=== PATIENT | female | born 1940 | race Caucasian/White ===

== ENCOUNTER 2021-06-04 08:21 | Outpatient (REF) | payer MEDICARE, SELFPAY ==
--- NOTE | ~2021-06-04 | MM_ITS ---
EXAMINATION: MM SCREENING DIGITAL BREAST TOMOSYNTHESIS, BILATERAL CLINICAL INFORMATION: Screening. Asymptomatic. Right benign stereotactic biopsy 10/19/2028 (fibroadenomatous change and calcifications). The lifetime risk of breast cancer based on the Tyrer-Cuzick Model is 2%. COMPARISON: Mammography: 02/24/2020, 10/19/2018, 10/12/2018, 10/01/2018, 09/06/2017 TECHNIQUE: Digital breast tomosynthesis is performed in both the craniocaudal and mediolateral oblique views along with computer-aided detection (CAD). Synthesized 2D images are generated from the tomosynthesis. FINDINGS: There are scattered areas of fibroglandular density (ACR BI-RADS breast composition Category b). There are no significant masses, abnormal calcifications, or other abnormalities. There is biopsy clip marker right breast mid 6:00 position. The axilla and skin contours are unremarkable. MM/MM tomosynthesis screening BI IMPRESSION: No mammographic evidence of malignancy. ASSESSMENT: BI-RADS 1: Negative RECOMMENDATION: Routine annual mammography screening. This patient's information was entered into a reminder system with a target due date for their next mammogram.
== END 2021-06-04 08:22 | disposition home or self-care (01) ==
LOC: HO.MAMMO 08:21
PROVIDERS: Visit Provider Family Medicine
DX: Z12.31 Encounter for screening mammogram for malignant neoplasm of breast (principal)
CPT/HCPCS: 77063; 77067

== ENCOUNTER 2022-06-14 07:19 | Outpatient (REF) | payer MEDICARE, OTHER, SELFPAY ==
--- NOTE | ~2022-06-14 | MM_ITS ---
EXAMINATION: MM SCREENING DIGITAL BREAST TOMOSYNTHESIS, BILATERAL CLINICAL INFORMATION: Screening. Asymptomatic. COMPARISON: Mammography: 06/04/2021, 02/24/2020, 10/19/2018, 10/12/2018, 10/01/2018 TECHNIQUE: Digital breast tomosynthesis is performed in both the craniocaudal and mediolateral oblique views along with computer-aided detection (CAD). Synthesized 2D images are generated from the tomosynthesis. FINDINGS: There are scattered areas of fibroglandular density (ACR BI-RADS breast composition Category b). There are no significant masses, abnormal calcifications, or other abnormalities. Parenchymal pattern is similar to prior studies. There are biopsy clip marker is posterior upper outer left breast and mid 6:30 right breast. Small intramammary nodes again seen mid outer right breast. No significant changes. MM/MM tomosynthesis screening BI IMPRESSION: No mammographic evidence of malignancy. ASSESSMENT: BI-RADS 2: Benign RECOMMENDATION: Routine annual mammography screening. This patient's information was entered into a reminder system with a target due date for their next mammogram.
== END 2022-06-14 07:20 | disposition home or self-care (01) ==
LOC: HO.MAMMO 07:19
PROVIDERS: PCP Family Medicine; Visit Provider Family Medicine
DX: Z12.31 Encounter for screening mammogram for malignant neoplasm of breast (principal)
CPT/HCPCS: 77063; 77067

== ENCOUNTER 2023-06-20 14:06 | Outpatient (REF) | payer MEDICARE, OTHER, SELFPAY ==
--- NOTE | ~2023-06-20 | MM_ITS ---
EXAMINATION: MM SCREENING DIGITAL BREAST TOMOSYNTHESIS, BILATERAL CLINICAL INFORMATION: Screening. Asymptomatic. COMPARISON: Mammography: This study is compared with prior exams dating back to 2019. TECHNIQUE: Digital breast tomosynthesis is performed in both the craniocaudal and mediolateral oblique views along with computer-aided detection (CAD). Synthesized 2D images are generated from the tomosynthesis. FINDINGS: There are scattered areas of fibroglandular density (ACR BI-RADS breast composition Category b). There are no significant masses, abnormal calcifications, or other abnormalities. There is a tissue marker present in the right breast from prior benign percutaneous biopsy. Serial MM/MM tomosynthesis screening BI IMPRESSION: No mammographic evidence of malignancy. ASSESSMENT: BI-RADS BI-RADS 2 - Benign Findings RECOMMENDATION: Routine annual mammography screening. 1 year F/U This examination should not preclude the clinical evaluation of a suspicious palpable abnormality. This patient's information was entered into a reminder system with a target due date for their next mammogram.
== END 2023-06-20 14:07 | disposition home or self-care (01) ==
LOC: HO.MAMMO 14:06
PROVIDERS: PCP Family Medicine; Visit Provider Family Medicine
DX: Z12.31 Encounter for screening mammogram for malignant neoplasm of breast (principal)
CPT/HCPCS: 77063; 77067

== ENCOUNTER → 2023-06-20 14:15 | Outpatient (BNV) | payer MEDICARE, OTHER, SELFPAY | PROVIDERS: PCP Family Medicine; Visit Provider Radiology Diagnostic Radiology | DX: Z12.31 Encounter for screening mammogram for malignant neoplasm of breast (principal) | CPT/HCPCS: 77063; 77067 ==

== ENCOUNTER 2023-06-28 19:13 | Emergency (ER) | payer MEDICARE, OTHER, SELFPAY ==
[2023-06-28] VITALS (8 sets, daily range): BP systolic 120–153; BP diastolic 63–80; PULSE 79–98; RESP 14–17; TEMP 36.4–37.6; O2SAT 97–99; BMI 38.3
--- NOTE | ~2023-06-28 | CT_ITS ---
EXAMINATION: CT CERVICAL SPINE WITHOUT CONTRAST CLINICAL INFORMATION: Pain. Fall. COMPARISON: None available. TECHNIQUE: Axial images through the cervical spine without contrast. Sagittal and coronal reconstructions on the technologist workstation This CT examination was performed using dose optimization techniques as appropriate, variously including the following: *Automated exposure control *Adjustment of mA and/or kV according to patient size (this includes techniques or standardized protocols for targeted exams where dose is matched to indication/reason for exam; i.e. extremities or head) *Use of iterative reconstruction technique DLP: 459 mGy-cm FINDINGS: Bone alignment is normal. No fracture or dislocation. Mild degenerative spondylosis and degenerative disc disease from C4-C5 to C6-C7. Mild degenerative changes of the C1 dens articulation. Mild facet arthritis, left greater than right. Prevertebral soft tissues are normal. Small 1.3 cm left thyroid nodule. No imaging follow-up recommended. Right carotid calcification. Visualized lung apices are clear. CT/CT cervical spine wo IV con IMPRESSION: Degenerative changes. No fracture or dislocation. Fleischner guidelines were followed.
--- NOTE | ~2023-06-28 | CT_ITS ---
EXAMINATION: CT HEAD WITHOUT CONTRAST CLINICAL INFORMATION: Fall COMPARISON: None available. TECHNIQUE: Contiguous axial imaging was performed from the skull base to vertex without intravenous administration of contrast. This CT examination was performed using dose optimization techniques as appropriate, variously including the following: *Automated exposure control *Adjustment of mA and/or kV according to patient size (this includes techniques or standardized protocols for targeted exams where dose is matched to indication/reason for exam; i.e. extremities or head) *Use of iterative reconstruction technique DLP: 742 mGy-cm FINDINGS: There is no evidence of an extra-axial collection. There is no evidence of intra-axial or extra-axial hemorrhage. The ventricles and extra-axial CSF spaces are prominent suggestive of mild generalized atrophy. There is nonspecific periventricular white matter disease. No mass, mass effect or infarct. Review of bone windows is normal. No skull fracture. Visualized paranasal sinuses, mastoid air cells and middle ears are clear. CT/CT head/brain wo IV con IMPRESSION: No acute intracranial pathology.
--- NOTE | 2023-06-28 19:32 | ED.FALL ---
HPI - Fall General Chief Complaint: Fall Stated Complaint: TRIP/FALL OVER CHAIR,+LOC,-THIN,+CCOLLAR Time Seen by Provider: 06/28/23 19:31 Source: patient and family Mode of arrival: EMS Limitations: no limitations History of Present Illness HPI Narrative: Patient history of hypertension and was healthy at good time with friends sitting had 1 glass of wine at dinner patient does not remember after that , according to her friends patient stood up and tripped over her chair and fell backward hitting her head to the ground no seizure activity no loss of consciousness patient was dazed patient denies any chest pain or palpitation remember waking up from the ground with her friend surrounding her. Patient never had similar episode in the past Related Data Allergies Allergy/AdvReac Type Severity Reaction Status Date / Time losartan [LOSARTAN] Allergy Severe TONGUE/THROAT Unverified 04/09/20 16:50 SWELLING, anaphylaxis KERRY Inhibitors Allergy Unknown COUGHING Unverified 04/09/20 16:50 [KERRY INHIBITORS] ARBs Allergy Unknown Unverified 10/24/18 00:00 lisinopril Allergy Unknown cough Verified 10/24/18 00:00 MARTA Allergy Severe TONGUE/THROAT Uncoded 04/09/20 16:50 SWELLING KERRY Inhibitors Allergy Unknown cough Uncoded 10/24/18 00:00 KERRY inhibitors Allergy Unknown Uncoded 07/26/18 00:00 Losartan Potassium-HCTZ Allergy Unknown anaphylaxis Uncoded 10/24/18 00:00 Review of Systems Review of Systems: Yes all other systems are reviewed and are negative [facility] Social History Social History Alcohol intake: current Alcohol intake frequency: holidays/special occasions only Alcohol type: wine Smoked in Last 30 Days: No Use of substances other than those prescribed or required for medical reasons: No Advance Directives: Yes Advance Directives Information Provided: No Advance Directives on File: No Physical Exam Vital Signs: Vital Signs: Last Vital Signs Temp 99.6 F 06/28/23 23:19 Pulse 98 06/28/23 23:19 Resp 17 06/28/23 23:19 BP 145/80 H 06/28/23 23:19 Pulse Ox 97 06/28/23 23:19 O2 Del Method Room Air 06/28/23 23:19 BMI result Body Mass Index 38.3 Appearance: Alert. Oriented X3. No acute distress. Eyes: PERRLA, No Nystagmus ENT: Pharynx normal. Oral Mucosa moist Neck: Normal inspection. Neck supple. No midline tenderness CVS: Normal heart rate and rhythm. Pulses normal. Respiratory: No respiratory distress. Equal air entry bilateral, no wheezing/rales/rhonchi Abdomen: Soft and nontender. Bowel sounds are present, no mass palpable, no CVA tenderness Skin: Skin warm and dry. Normal skin color. Normal skin turgor. Extremities: No lower extremity edema. No calf tenderness Neuro: Oriented X 3. No motor deficit. No sensory deficit.No cerebellar signs , cranial nerves II-XII intact Medical Decision Making Medical Decision Making [facility] Narrative: Patient's syncope episode etiology not very clear likely orthostatic hypotension/vasovagal workup is negative otherwise discharge patient home advised to follow with PCP Differential Diagnosis Differential Diagnoses: The differential diagnosis associated with the presentation includes Syncope/vasovagal/cardiac /cva Admission/Observation Consideration of admission/observation: Escalation of care including admission/observation considered Lab Data [facility] Lab Attestation statement: I reviewed the patient's lab results. 06/28/23 20:05 06/28/23 20:05 Labs: Lab Results 06/28/23 06/28/23 Range/Units 20:05 22:25 WBC 7.4 (4.8-10.8) X10*3/uL RBC 5.17 (4.20-5.50) X10*6/uL Hgb 13.7 (12.0-16.0) g/dl Hct 43.4 (37.0-47.0) % MCV 83.9 (80.0-98.0) fL MCH 26.5 L (27.0-33.0) pg MCHC 31.6 (31.0-35.0) g/dl RDW 13.9 (11.0-16.0) % Plt Count 262 (160-400) X10*3/uL MPV 10.1 (9.4-12.3) fL Immature Gran % (Auto) 0.3 (0.0-0.4) % Neut % (Auto) 52.4 (45-73) % Lymph % (Auto) 36.2 (20-40) % [place] % (Auto) 9.3 (2-11) % Eos % (Auto) 1.1 (0-4) % Baso % (Auto) 0.7 (0-2) % Lymph # (Auto) 2.7 (1.2-4.9) X10*3/uL [place] # (Auto) 0.7 (0.1-1.2) X10*3/uL Eos # (Auto) 0.1 (0.0-0.4) X10*3/uL Baso # (Auto) 0.1 (0.0-0.2) X10*3/uL Abs Immat Gran (auto) 0.02 (0.00-0.03) X10*3/uL Absolute Neuts (auto) 3.9 (2.0-8.3) x10*3/uL Absolute Nucleated RBC 0.000 (0.0-0.012) X10*3/uL Nucleated RBC % (auto) 0.0 (0.0-0.2) /100WBC PT 10.3 L (11.1-13.3) SEC INR 0.8 L (0.9-1.1) Sodium 140 (135-145) mmol/L Potassium 3.2 L (3.3-5.1) mmol/L Chloride 106 (96-108) mmol/L Carbon Dioxide 22 (22-29) mmol/L Anion Gap 15 (12-20) BUN 16 (9-16) mg/dL Creatinine 0.85 (0.5-1.4) mg/dL Estim Creat Clear Calc 53.6 Estimated GFR > 60 Random Glucose 125 H (60-115) mg/dL Calcium 9.6 (8.4-10.2) mg/dL Total Bilirubin 0.3 (0.0-1.0) mg/dL AST 22 (5-31) U/L ALT 15 (0-31) U/L Alkaline Phosphatase 129 H (39-117) U/L Troponin I High Sens < 2.7 (<3.5-17.0) ng/L Total Protein 6.8 (6.5-8.0) g/dL Albumin 3.7 (3.5-5.0) g/dL Urine Color Yellow Urine Appearance Clear Urine pH 5.5 (5.0-9.0) Ur Specific Joanna 1.010 (1.005-1.025) Urine Protein Negative (Neg-Trace) mg/dL Urine Glucose (UA) Negative (Negative) mg/dL Urine Ketones Negative (Negative) mg/dL Urine Blood Negative (Negative) Urine Nitrite Negative (Negative) Ur Leukocyte Esterase Trace H (Negative) Urine RBC 0-2 (0-2) /HPF Urine WBC 0-5 (0-5) /HPF Ur Squamous Epith Cells 0-2 (0-2) /HPF Urine Bacteria None Seen (None Seen) Hyaline Casts 0-2 (0-2) /LPF Independent Interpretation I performed an independent interpretation of an: EKG and CT Scan Interpretation: Normal sinus rhythm heart rate 91 beats per minute normal intervals normal axis no acute ST T wave changes no acute ischemic Radiology Impression Discussion of test interpretation with radiology: I have reviewed the radiologist's reading. Discharge Plan Discharge Clinical Impression: Fall, Vasovagal syncope Patient Disposition: Home, Self-Care Instructions: Fall Prevention for Older Adults (ED), Syncope in Older Adults (ED) Additional Instructions: Drink plenty of fluids Follow-up with PCP for further evaluation Report to the ER if recurrence of passing out episode Interventions: ED Discharge Assessment Last Done: 06/28/23 23:22 Discharge Date/Time: 06/28/23 23:24
--- NOTE | 2023-06-28 19:40 | ECG_ITS ---
Test Reason : SYNCOPE Blood Pressure : / mmHG Vent. Rate : 091 BPM Atrial Rate : 091 BPM P-R Int : 170 ms QRS Dur : 084 ms QT Int : 366 ms P-R-T Axes : 008 002 030 degrees QTc Int : 450 ms Normal sinus rhythm Normal ECG When compared with ECG of 05-NOV-2011 08:52, No significant change was found Referred By: Adam Shen Electronically Signed By:EUNICE FORTUNE
[2023-06-28 20:10] LABS: MANUAL DIFF FLAG NO
[2023-06-28 20:11] LABS: Basophils Absolute Auto 0.1 X10*3/uL (0.0-0.2); Basophils Percent Auto 0.7 % (0-2); Eosinophils Absolute Auto 0.1 X10*3/uL (0.0-0.4); Eosinophils Percent Auto 1.1 % (0-4); Hematocrit 43.4 % (37.0-47.0); Hemoglobin 13.7 g/dl (12.0-16.0); Imm Gran Abs Auto 0.02 X10*3/uL (0.00-0.03); Imm Gran Pct Auto 0.3 % (0.0-0.4); Lymphocytes Absolute Auto 2.7 X10*3/uL (1.2-4.9); Lymphocytes Percent Auto 36.2 % (20-40); Mean Corpuscular HGB Conc 31.6 g/dl (31.0-35.0); Mean Corpuscular Hemoglobin 26.5 pg (27.0-33.0); Mean Corpuscular Volume 83.9 fL (80.0-98.0); Mean Platelet Volume 10.1 fL (9.4-12.3); Monocytes Absolute Auto 0.7 X10*3/uL (0.1-1.2); Monocytes Percent Auto 9.3 % (2-11); Neutrophils Absolute Auto 3.9 x10*3/uL (2.0-8.3); Neutrophils Percent Auto 52.4 % (45-73); Platelet Count 262 X10*3/uL (160-400); Red Blood Count 5.17 X10*6/uL (4.20-5.50); Red Cell Distribution Width 13.9 % (11.0-16.0); White Blood Count 7.4 X10*3/uL (4.8-10.8)
[2023-06-28 20:19] LABS: INTERNATIONAL NORM RATIO 0.8 (0.9-1.1); Prothrombin Time 10.3 SEC (11.1-13.3)
[2023-06-28 20:29] LABS: Alanine Aminotransferase 15 U/L (0-31); Albumin Level 3.7 g/dL (3.5-5.0); Alkaline Phosphatase 129 U/L (39-117); Anion Gap 15 (12-20); Aspartate Amino Transferase 22 U/L (5-31); Bilirubin Total 0.3 mg/dL (0.0-1.0); Blood Urea Nitrogen 16 mg/dL (9-16); Calcium 9.6 mg/dL (8.4-10.2); Carbon Dioxide 22 mmol/L (22-29); Chloride 106 mmol/L (96-108); Creatinine Clr Calc Pharmacy 53.6; Estimated Glomerular Filt Rate > 60; Glucose Random 125 mg/dL (60-115); Potassium 3.2 mmol/L (3.3-5.1); Sodium 140 mmol/L (135-145); Total Protein 6.8 g/dL (6.5-8.0)
--- NOTE | 2023-06-28 20:32 | PC.NURSE ---
Patient presents after a fall which she tripped over a chair and fell backwards. Patient does not remember the fall at all but does remember that she was at dinner and then that she was on the ground and people telling her that everything was going to be alright. Patient does ask repetitive questions but is easily reoriented. No s/s of distress noted at this time, patient is in C-collar post fall.
[2023-06-28 20:35] LABS: Troponin-I High Sensitivity < 2.7 ng/L (<3.5-17.0)
--- NOTE | 2023-06-28 22:02 | PC.NURSE ---
Proxy at bedside at this time. Patient remain alert and oriented but still has not memory of falling. Patient is calm and cooperative at this time, no s/s of distress noted.
[2023-06-28 22:37] LABS: Appearance Urine Clear; Color Urine Yellow; Glucose Urine UA Negative (Negative); Leukocyte Esterase Urine Trace (Negative); Nitrite Urine Negative (Negative); PH 5.5 (5.0-9.0); UMIC TRIGGER UACC YES; Urine Blood Negative (Negative); Urine Ketones Negative (Negative); Urine Protein Negative (Neg-Trace)
[2023-06-28 22:39] LABS: Bacteria Urine None Seen (None Seen); Hyaline Casts Urine 0-2 /LPF (0-2); RBC Urine 0-2 /HPF (0-2); Squamous Epithelial Cell Urine 0-2 /HPF (0-2); WBC Urine 0-5 /HPF (0-5)
--- NOTE | 2023-06-28 22:50 | PC.NURSE ---
Patient sitting on the edge of her stretcher saying that she is ready to go, discharge order not in yet. Patient informed that discharge orders were not in and that when the paperwork was ready this nurse would be in to discharge her.
== END 2023-06-28 23:24 | disposition home or self-care (01) ==
PROVIDERS: Emergency Provider Internal Medicine; PCP Family Medicine
DX: R55 Syncope and collapse (principal); Z91.81 History of falling
CPT/HCPCS: 36415; 70450; 72125; 80053; 81001; 84484; 85025; 85610; 93005; 99284; 99285

== ENCOUNTER → 2023-06-28 19:40 | Outpatient (BNV) | payer MEDICARE, OTHER, SELFPAY | PROVIDERS: Emergency Provider Internal Medicine; PCP Family Medicine; Visit Provider Internal Medicine | DX: R55 Syncope and collapse (principal) | CPT/HCPCS: 93010 ==

== ENCOUNTER 2024-01-11 16:47 | Emergency (ER) | payer MEDICARE, OTHER, SELFPAY ==
--- NOTE | ~2024-01-11 | XR_ITS ---
EXAMINATION: XR CHEST CLINICAL INFORMATION: Chest pain. COMPARISON: Chest radiograph 07/29/2008. TECHNIQUE: Frontal view of the chest was obtained. FINDINGS: Normal appearance of the cardiomediastinal silhouette. No focal consolidation, pleural effusion or pneumothorax. No acute osseous findings. Visualized upper abdomen is within normal limits. XR/XR chest 1V IMPRESSION: No acute cardiopulmonary findings.
--- NOTE | 2024-01-11 16:48 | ECG_ITS ---
Test Reason : CHEST TIGHTNESS Blood Pressure : / mmHG Vent. Rate : 095 BPM Atrial Rate : 095 BPM P-R Int : 170 ms QRS Dur : 082 ms QT Int : 328 ms P-R-T Axes : -07 -14 020 degrees QTc Int : 412 ms Normal sinus rhythm Normal ECG When compared with ECG of 28-JUN-2023 20:14, No significant change was found Referred By: Sandra Etienne Electronically Signed By:Luc Ribeiro
--- NOTE | 2024-01-11 17:10 | ED_ITS ---
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 Holter monitoring 2 times but never captured the palpitation today patient comes for similar episode of palpitation lasted a little longer by the time patient arrived to the ER back to normal also had some chest tightness with palpitation no shortness breath no dizziness no passing out episode Related Data Previous Rx's ?Medication ?Instructions ?Recorded aspirin 81 mg tablet,delayed 81 mg PO DAILY #30 tabs 01/11/24 release Allergies Allergy/AdvReac Type Severity Reaction Status Date / Time losartan [LOSARTAN] Allergy Severe TONGUE/THROAT Verified 01/11/24 17:14 SWELLING, anaphylaxis KERRY Inhibitors Allergy Unknown COUGHING Verified 01/11/24 17:14 [KERRY INHIBITORS] ARBs Allergy Unknown Unknown Verified 01/11/24 17:14 lisinopril Allergy Unknown cough Verified 01/11/24 17:14 MARTA Allergy Severe TONGUE/THROAT Uncoded 04/09/20 16:50 SWELLING KERRY Inhibitors Allergy Unknown cough Uncoded 10/24/18 00:00 KERRY inhibitors Allergy Unknown Unknown Uncoded 01/11/24 17:14 Losartan Potassium-HCTZ Allergy Unknown anaphylaxis Uncoded 10/24/18 00:00 Review of Systems 2 Review of Systems: Yes all other systems are reviewed and are negative PMFSH Social History Social History Alcohol intake: current Alcohol intake frequency: holidays/special occasions only Alcohol type: wine Smoked in Last 30 Days: No Use of substances other than those prescribed or required for medical reasons: No Advance Directives: No Advance Directives Information Provided: No Do you have a plan to hurt others: No Plan Physical Exam 2 Vital Signs: Vital Signs: Last Vital Signs Temp 97.6 F 01/11/24 19:43 Pulse 74 01/11/24 19:43 Resp 16 01/11/24 19:43 BP 144/7 H 01/11/24 19:43 Pulse Ox 97 01/11/24 19:43 O2 Del Method Room Air 01/11/24 19:43 BMI result Body Mass Index 35.9 Appearance: Alert. Oriented X3. No acute distress. Eyes: PERRLA, No Nystagmus ENT: Pharynx normal. Oral Mucosa moist Neck: Normal inspection. Neck supple. CVS: Normal heart rate and rhythm. Pulses normal. Respiratory: No respiratory distress. Equal air entry bilateral, no wheezing/rales/rhonchi Abdomen: Soft and nontender. Bowel sounds are present, no mass palpable, no CVA tenderness Skin: Skin warm and dry. Normal skin color. Normal skin turgor. Extremities: No lower extremity edema. No calf tenderness Neuro: Oriented X 3. No motor deficit. No sensory deficit.No cerebellar signs , cranial nerves II-XII intact Course Course Course Narrative: This is a Rapid Medical Exam performed in triage by Sandra Etienne PA-C. Full HPI, ROS and PE to be performed by primary ED provider. 83 year-old w/ PMHx HTN presenting to the ED c/o palpitations since this AM w/ chest tightness & HTN noted at home starting around 9AM while reading. Reports sx are improved at present but sx have been happening lately Told to come to ED by PCP. denies new SOB (chronic SOB), nausea. denies taking AC PE: Nontoxic appearing, ambulating w/steady gait, BP 161/86 Plan: EKG, labs, CXR ordered Medications Administered Discontinued Medications Generic Name Dose Route Start Last Admin Trade Name Freq PRN Reason Stop Dose Admin Aspirin 81 mg 01/11/24 19:26 01/11/24 19:29 Aspirin Enteric Coated 81 Mg Tablet.Dr EARLY 01/11/24 19:27 81 mg ONCE ONE Administration Medical Decision Making Medical Decision Making [facility] Narrative: Patient with episode of palpitation workup still in progress plan to have when monitor during stay in the ER no cardiac arrest normal EKG normal labs discharge patient home advised to take baby aspirin follow with her studio owner for further evaluation likely she might have AFib Differential Diagnosis Differential Diagnoses: The differential diagnosis associated with the presentation includes Paroxysmal atrial tachycardia/PACs//atrial flutter/atrial fibrillation Lab Data [facility] Lab Attestation statement: I reviewed the patient's lab results. 01/11/24 18:26 01/11/24 18:26 Labs: Lab Results 01/11/24 Range/Units 18:26 WBC 10.9 H (4.8-10.8) X10*3/uL RBC 5.78 H (4.20-5.50) X10*6/uL Hgb 16.5 H D (12.0-16.0) g/dl Hct 49.7 H (37.0-47.0) % MCV 86.0 (80.0-98.0) fL MCH 28.5 (27.0-33.0) pg MCHC 33.2 (31.0-35.0) g/dl RDW 13.6 (11.0-16.0) % Plt Count 291 (160-400) X10*3/uL MPV 10.4 (9.4-12.3) fL Immature Gran % (Auto) 0.3 (0.0-0.4) % Neut % (Auto) 59.1 (45-73) % Lymph % (Auto) 28.6 (20-40) % [place] % (Auto) 10.8 (2-11) % Eos % (Auto) 0.7 (0-4) % Baso % (Auto) 0.5 (0-2) % Lymph # (Auto) 3.1 (1.2-4.9) X10*3/uL [place] # (Auto) 1.2 (0.1-1.2) X10*3/uL Eos # (Auto) 0.1 (0.0-0.4) X10*3/uL Baso # (Auto) 0.1 (0.0-0.2) X10*3/uL Abs Immat Gran (auto) 0.03 (0.00-0.03) X10*3/uL Absolute Neuts (auto) 6.4 (2.0-8.3) x10*3/uL Absolute Nucleated RBC 0.000 (0.0-0.012) X10*3/uL Nucleated RBC % (auto) 0.0 (0.0-0.2) /100WBC PT 10.0 L (11.1-13.3) SEC INR 0.8 L (0.9-1.1) Sodium 142 (135-145) mmol/L Potassium 3.7 (3.3-5.1) mmol/L Chloride 107 (96-108) mmol/L Carbon Dioxide 25 (22-29) mmol/L Anion Gap 14 (12-20) BUN 19 H (9-16) mg/dL Creatinine 0.78 (0.5-1.4) mg/dL Estim Creat Clear Calc 55.4 Estimated GFR > 60 Random Glucose 128 H (60-115) mg/dL Calcium 9.7 (8.4-10.2) mg/dL Magnesium 2.0 (1.6-2.6) mg/dL Total Bilirubin 0.5 (0.0-1.0) mg/dL Direct Bilirubin 0.2 (0.0-0.5) mg/dL AST 12 (5-31) U/L ALT 14 (0-31) U/L Alkaline Phosphatase 97 (39-117) U/L Troponin I High Sens 2.8 (<3.5-17.0) ng/L Total Protein 6.8 (6.5-8.0) g/dL Albumin 3.8 (3.5-5.0) g/dL TSH 2.22 (0.32-4.0) uIU/mL Independent Interpretation I performed an independent interpretation of an: EKG Interpretation: Normal sinus rhythm heart rate 95 beats per minute normal interval normal axis no acute ST T wave changes no acute ischemia Discharge Plan Discharge Clinical Impression: Heart palpitations Patient Disposition: Home, Self-Care Instructions: Heart Palpitations (ED) Additional Instructions: Follow up with your studio owner for further management including event monitor It is possible you might have atrial fibrillation Take baby aspirin daily Report to ER if persistent palpitation/syncope Prescriptions: New aspirin 81 mg tablet,delayed release (DR/EC) 81 mg PO DAILY Qty: 30 0RF Interventions: ED Discharge Assessment Last Done: 01/11/24 19:43 Discharge Date/Time: 01/11/24 19:47 Print Language: Algerian
[2024-01-11 17:11] VITALS: BP 161/86; PULSE 98; RESP 18; TEMP 36.4; O2SAT 97; BMI 35.9
[2024-01-11 18:32] LABS: MANUAL DIFF FLAG NO
[2024-01-11 18:33] LABS: Basophils Absolute Auto 0.1 X10*3/uL (0.0-0.2); Basophils Percent Auto 0.5 % (0-2); Eosinophils Absolute Auto 0.1 X10*3/uL (0.0-0.4); Eosinophils Percent Auto 0.7 % (0-4); Hematocrit 49.7 % (37.0-47.0); Hemoglobin 16.5 g/dl (12.0-16.0); Imm Gran Abs Auto 0.03 X10*3/uL (0.00-0.03); Imm Gran Pct Auto 0.3 % (0.0-0.4); Lymphocytes Absolute Auto 3.1 X10*3/uL (1.2-4.9); Lymphocytes Percent Auto 28.6 % (20-40); Mean Corpuscular HGB Conc 33.2 g/dl (31.0-35.0); Mean Corpuscular Hemoglobin 28.5 pg (27.0-33.0); Mean Platelet Volume 10.4 fL (9.4-12.3); Monocytes Absolute Auto 1.2 X10*3/uL (0.1-1.2); Monocytes Percent Auto 10.8 % (2-11); Neutrophils Absolute Auto 6.4 x10*3/uL (2.0-8.3); Neutrophils Percent Auto 59.1 % (45-73); Platelet Count 291 X10*3/uL (160-400); Red Blood Count 5.78 X10*6/uL (4.20-5.50); Red Cell Distribution Width 13.6 % (11.0-16.0); White Blood Count 10.9 X10*3/uL (4.8-10.8)
[2024-01-11 18:41] LABS: INTERNATIONAL NORM RATIO 0.8 (0.9-1.1)
[2024-01-11 18:54] LABS: Alanine Aminotransferase 14 U/L (0-31); Albumin Level 3.8 g/dL (3.5-5.0); Alkaline Phosphatase 97 U/L (39-117); Anion Gap 14 (12-20); Aspartate Amino Transferase 12 U/L (5-31); Bilirubin Direct 0.2 mg/dL (0.0-0.5); Bilirubin Total 0.5 mg/dL (0.0-1.0); Blood Urea Nitrogen 19 mg/dL (9-16); Calcium 9.7 mg/dL (8.4-10.2); Carbon Dioxide 25 mmol/L (22-29); Chloride 107 mmol/L (96-108); Creatinine Clr Calc Pharmacy 55.4; Estimated Glomerular Filt Rate > 60; Glucose Random 128 mg/dL (60-115); Potassium 3.7 mmol/L (3.3-5.1); Sodium 142 mmol/L (135-145); Total Protein 6.8 g/dL (6.5-8.0)
[2024-01-11 18:55] LABS: Troponin-I High Sensitivity 2.8 ng/L (<3.5-17.0)
[2024-01-11 19:09] LABS: TSH reflex Free T4 2.22 uIU/mL (0.32-4.0)
[2024-01-11 19:25] VITALS: PULSE 77
[2024-01-11] MEDS: Aspirin Enteric Coated 81 MG TABLET.DR PO (19:29)
[2024-01-11 19:31] VITALS: BP 144/78; PULSE 74; RESP 16; TEMP 36.4; O2SAT 97
[2024-01-11 19:43] VITALS: BP 144/7; PULSE 74; RESP 16; TEMP 36.4; O2SAT 97
== END 2024-01-11 19:47 | disposition home or self-care (01) ==
PROVIDERS: Physician Assistant; Emergency Provider Internal Medicine; PCP Family Medicine
DX: R00.2 Palpitations (principal); I10 Essential (primary) hypertension; R06.02 Shortness of breath
CPT/HCPCS: 36415; 71045; 80048; 80076; 83735; 84443; 84484; 85025; 85610; 93005; 99283; 99285

== ENCOUNTER → 2024-01-11 16:48 | Outpatient (BNV) | payer MEDICARE, OTHER, SELFPAY | PROVIDERS: Emergency Provider Internal Medicine; PCP Family Medicine; Visit Provider Internal Medicine Cardiovascular Disease | DX: R07.9 Chest pain, unspecified (principal) | CPT/HCPCS: 93010 ==

== ENCOUNTER 2024-02-12 09:15 | Emergency (ER) | payer MEDICARE, OTHER, SELFPAY ==
[2024-02-12 09:20] VITALS: BP 176/100; PULSE 103; RESP 18; TEMP 36.4; O2SAT 98; BMI 36.3
--- NOTE | 2024-02-12 09:24 | ECG_ITS ---
Test Reason : palpatations Blood Pressure : / mmHG Vent. Rate : 087 BPM Atrial Rate : 087 BPM P-R Int : 172 ms QRS Dur : 078 ms QT Int : 352 ms P-R-T Axes : -02 -14 023 degrees QTc Int : 423 ms Normal sinus rhythm Anterolateral infarct , age undetermined ; can be related to body habitus and lead placement Abnormal ECG When compared with ECG of 11-JAN-2024 16:49, No significant change was found Referred By: Generic ED Physician Electronically Signed By:EUNICE FORTUNE
[2024-02-12 09:44] LABS: MANUAL DIFF FLAG NO
[2024-02-12 09:49] LABS: Basophils Percent Auto 0.7 % (0-2); Eosinophils Absolute Auto 0.1 X10*3/uL (0.0-0.4); Eosinophils Percent Auto 0.9 % (0-4); Hematocrit 50.9 % (37.0-47.0); Hemoglobin 17.3 g/dl (12.0-16.0); Imm Gran Abs Auto 0.01 X10*3/uL (0.00-0.03); Imm Gran Pct Auto 0.2 % (0.0-0.4); Lymphocytes Absolute Auto 1.8 X10*3/uL (1.2-4.9); Lymphocytes Percent Auto 30.8 % (20-40); Mean Corpuscular Hemoglobin 29.1 pg (27.0-33.0); Mean Corpuscular Volume 85.7 fL (80.0-98.0); Mean Platelet Volume 10.6 fL (9.4-12.3); Monocytes Absolute Auto 0.7 X10*3/uL (0.1-1.2); Monocytes Percent Auto 12.3 % (2-11); Neutrophils Absolute Auto 3.2 x10*3/uL (2.0-8.3); Neutrophils Percent Auto 55.1 % (45-73); Platelet Count 254 X10*3/uL (160-400); Red Blood Count 5.94 X10*6/uL (4.20-5.50); Red Cell Distribution Width 13.6 % (11.0-16.0); White Blood Count 5.9 X10*3/uL (4.8-10.8)
--- NOTE | 2024-02-12 09:52 | ED_ITS ---
HPI - Arrhythmia/Palpitations General Chief Complaint: Arrhythmia/Palpitations Stated Complaint: Heart palpitations Time Seen by Provider: 02/12/24 09:34 Source: patient Mode of arrival: ambulatory Limitations: no limitations History of Present Illness HPI narrative: This is a 83 years old patient presented to the emergency department with a chief complaint of palpitations since this morning. Patient was seen in this emergency room in December with the same complaint. She has history of high blood pressure no history of CAD. MD complaint: heart racing Onset (ago): hour(s) (2) Duration: intermittent Severity: mild Context: occurred during rest Associated symptoms: denies other symptoms Related Data Previous Rx's ?Medication ?Instructions ?Recorded aspirin 81 mg tablet,delayed 81 mg PO DAILY #30 tabs 01/11/24 release Allergies Allergy/AdvReac Type Severity Reaction Status Date / Time losartan [LOSARTAN] Allergy Severe TONGUE/THROAT Verified 02/12/24 09:23 SWELLING, anaphylaxis KERRY Inhibitors Allergy Unknown COUGHING Verified 02/12/24 09:23 [KERRY INHIBITORS] ARBs Allergy Unknown Unknown Verified 02/12/24 09:23 lisinopril Allergy Unknown cough Verified 02/12/24 09:23 MARTA Allergy Severe TONGUE/THROAT Uncoded 04/09/20 16:50 SWELLING KERRY Inhibitors Allergy Unknown cough Uncoded 10/24/18 00:00 KERRY inhibitors Allergy Unknown Unknown Uncoded 01/11/24 17:14 Review of Systems 2 Constitutional: Constitutional: Reports no additional constitutional complaints ENT: Reports system reviewed and no additional complaints, except as documented Cardiovascular: Cardiovascular: Reports rapid heart rate [facility] Past Medical History [facility] Narrative: Hypertension Social History Social History Alcohol intake: current Alcohol intake frequency: holidays/special occasions only Alcohol type: wine Smoked in Last 30 Days: No Use of substances other than those prescribed or required for medical reasons: No Advance Directives: No Advance Directives Information Provided: No Do you have a plan to hurt others: No Plan Physical Exam 2 Vital Signs: Vital Signs: Last Vital Signs Temp 97.5 F 02/12/24 10:11 Pulse 86 02/12/24 10:11 Resp 12 02/12/24 10:11 BP 122/74 02/12/24 10:11 Pulse Ox 95 02/12/24 10:11 O2 Del Method Room Air 07/22/24 10:11 BMI result Body Mass Index 36.3 Const: General: cooperative Nutritional Appearance: well nourished O rientation/consciousness: oriented to person and patient oriented x3 L imitations: no limitations HEENT: Head: Yes normal to inspection Ears: hearing grossly normal bilaterally Face and sinus: Yes normal facial exam Mouth: Normal oral and palatal mucosa present Throat: Yes posterior oropharynx normal Neck: Neck: Yes normal visual inspection Chest: Chest palpation & inspection: normal inspection of the chest Resp: Effort & Inspection: normal respiratory effort Auscultation: clear to auscultation bilaterally Percussion: percussion normal Cardio: Jugular venous distension: no JVD Rate: regular rate Rhythm: r egular rhythm GI: Inspection: Yes normal to inspection Palpation (GI): Soft to palpation, not firm and nontender Percussion: Yes normal to percussion Auscultation: normal bowel sounds Skin: General skin exam: no rashes or lesions noted and elasticity normal L esions: no lesions Rashes: no rashes Neuro: General: oriented to person and patient oriented x3 Course Reevaluation(s) Reevaluation #1: Remained asymptomatic she is in sinus rhythm, troponin negative anticipate discharge Time: 12:51 Medical Decision Making Medical Decision Making MDM Narrative: Patient presented with palpitation will get electrocardiogram labs Differential Diagnosis Differential Diagnoses: The differential diagnosis associated with the presentation includes AFib/SVT/ventricular arrhythmia Admission/Observation Consideration of admission/observation: Escalation of care including admission/observation considered Lab Data [facility] Lab Attestation statement: I reviewed the patient's lab results. 02/12/24 09:40 02/12/24 09:40 Labs: Lab Results 02/12/24 02/12/24 Range/Units 09:40 10:44 WBC 5.9 (4.8-10.8) X10*3/uL RBC 5.94 H (4.20-5.50) X10*6/uL Hgb 17.3 H (12.0-16.0) g/dl Hct 50.9 H (37.0-47.0) % MCV 85.7 (80.0-98.0) fL MCH 29.1 (27.0-33.0) pg MCHC 34.0 (31.0-35.0) g/dl RDW 13.6 (11.0-16.0) % Plt Count 254 (160-400) X10*3/uL MPV 10.6 (9.4-12.3) fL Immature Gran % (Auto) 0.2 (0.0-0.4) % Neut % (Auto) 55.1 (45-73) % Lymph % (Auto) 30.8 (20-40) % [place] % (Auto) 12.3 H (2-11) % Eos % (Auto) 0.9 (0-4) % Baso % (Auto) 0.7 (0-2) % Lymph # (Auto) 1.8 (1.2-4.9) X10*3/uL [place] # (Auto) 0.7 (0.1-1.2) X10*3/uL Eos # (Auto) 0.1 (0.0-0.4) X10*3/uL Baso # (Auto) 0.0 (0.0-0.2) X10*3/uL Abs Immat Gran (auto) 0.01 (0.00-0.03) X10*3/uL Absolute Neuts (auto) 3.2 (2.0-8.3) x10*3/uL Absolute Nucleated RBC 0.000 (0.0-0.012) X10*3/uL Nucleated RBC % (auto) 0.0 (0.0-0.2) /100WBC PT 10.7 L (11.1-13.3) SEC INR 0.9 (0.9-1.1) Sodium 139 (135-145) mmol/L Potassium 3.6 (3.3-5.1) mmol/L Chloride 106 (96-108) mmol/L Carbon Dioxide 22 (22-29) mmol/L Anion Gap 15 (12-20) BUN 19 H (9-16) mg/dL Creatinine 0.83 (0.5-1.4) mg/dL Estim Creat Clear Calc 52.4 Estimated GFR > 60 Random Glucose 127 H (60-115) mg/dL Calcium 10.7 H D (8.4-10.2) mg/dL Total Bilirubin 0.7 (0.0-1.0) mg/dL AST 23 (5-31) U/L ALT 22 (0-31) U/L Alkaline Phosphatase 91 (39-117) U/L Troponin I High Sens < 2.7 (<3.5-17.0) ng/L Total Protein 7.3 (6.5-8.0) g/dL Albumin 4.2 (3.5-5.0) g/dL Urine Color Yellow Urine Appearance Clear Urine pH 6.0 (5.0-9.0) Ur Specific [place] 1.010 (1.005-1.025) Urine Protein Negative (Neg-Trace) mg/dL Urine Glucose (UA) Negative (Negative) mg/dL Urine Ketones Negative (Negative) mg/dL Urine Blood Negative (Negative) Urine Nitrite Negative (Negative) Ur Leukocyte Esterase Small (1+) H (Negative) Urine RBC 0-2 (0-2) /HPF Urine WBC 0-5 (0-5) /HPF Ur Squamous Epith Cells 0-2 (0-2) /HPF Urine Bacteria None Seen (None Seen) Hyaline Casts 0-2 (0-2) /LPF Independent Interpretation I performed an independent interpretation of an: EKG (Normal sinus rhythm rate [address]-T changes normal EKG) Interpretation: Normal sinus rhythm no ST-T changes External Record Review External record reviewed: Inpatient record Discharge Plan Discharge Clinical Impression: Palpitations Patient Disposition: Home, Self-Care Instructions: Heart Palpitations (DC) Additional Instructions: Follow-up with the rubber engraver call and make an appointment with the today return to the emergency room if you worse if you dizzy any concern Prescriptions: No Action aspirin 81 mg tablet,delayed release (DR/EC) 81 mg PO DAILY Qty: 30 0RF Referrals: Jaleel Godinez MD [Physician] - 3 days Print Language: Greenlandic
[2024-02-12 09:59] LABS: INTERNATIONAL NORM RATIO 0.9 (0.9-1.1); Prothrombin Time 10.7 SEC (11.1-13.3)
[2024-02-12 10:00] LABS: Alanine Aminotransferase 22 U/L (0-31); Albumin Level 4.2 g/dL (3.5-5.0); Alkaline Phosphatase 91 U/L (39-117); Anion Gap 15 (12-20); Aspartate Amino Transferase 23 U/L (5-31); Bilirubin Total 0.7 mg/dL (0.0-1.0); Blood Urea Nitrogen 19 mg/dL (9-16); Calcium 10.7 mg/dL (8.4-10.2); Carbon Dioxide 22 mmol/L (22-29); Chloride 106 mmol/L (96-108); Creatinine Clr Calc Pharmacy 52.4; Estimated Glomerular Filt Rate > 60; Glucose Random 127 mg/dL (60-115); Potassium 3.6 mmol/L (3.3-5.1); Sodium 139 mmol/L (135-145); Total Protein 7.3 g/dL (6.5-8.0)
[2024-02-12 10:11] VITALS: BP 122/74; PULSE 86; RESP 12; TEMP 36.4; O2SAT 95
[2024-02-12 10:26] LABS: Troponin-I High Sensitivity < 2.7 ng/L (<3.5-17.0)
[2024-02-12 10:52] LABS: Appearance Urine Clear; Color Urine Yellow; Glucose Urine UA Negative (Negative); Leukocyte Esterase Urine Small (1+) (Negative); Nitrite Urine Negative (Negative); UMIC TRIGGER UACC YES; Urine Blood Negative (Negative); Urine Ketones Negative (Negative); Urine Protein Negative (Neg-Trace)
[2024-02-12 11:05] LABS: Bacteria Urine None Seen (None Seen); Hyaline Casts Urine 0-2 /LPF (0-2); RBC Urine 0-2 /HPF (0-2); Squamous Epithelial Cell Urine 0-2 /HPF (0-2); UACC Culture Trigger YES; WBC Urine 0-5 /HPF (0-5)
[2024-02-12 14:08] VITALS: BP 120/72; PULSE 71; RESP 16; TEMP 36.8; O2SAT 98
== END 2024-02-12 14:09 | disposition home or self-care (01) ==
PROVIDERS: Emergency Provider Emergency Medicine; PCP Family Medicine
DX: I49.9 Cardiac arrhythmia, unspecified (principal); R00.2 Palpitations; R53.83 Other fatigue; Z79.899 Other long term (current) drug therapy
CPT/HCPCS: 36415; 80053; 81001; 84484; 85025; 85610; 87086; 93005; 99283; 99285

== ENCOUNTER → 2024-02-12 09:24 | Outpatient (BNV) | payer MEDICARE, OTHER, SELFPAY | PROVIDERS: Emergency Provider Emergency Medicine; PCP Family Medicine; Visit Provider Internal Medicine | DX: R00.2 Palpitations (principal); R94.31 Abnormal electrocardiogram [ECG] [EKG] | CPT/HCPCS: 93010 ==

== ENCOUNTER 2024-07-02 08:19 | Outpatient (REF) | payer MEDICARE, OTHER, SELFPAY ==
--- OUTSIDE RECORDS SUMMARY | 2024-07-03 18:48 | XMS_ITS ---
[facility] Address [address] [place] [address] Care Team Providers Care Medical Legal Investigator Name Role Phone Rosalio Lauren MD Primary Care Provider Unava ilable Black, Dinorah Unavailable [phone] Allergies Allergen (clinical drug ingredient) Drug/Non Drug Allergy documented on EMR Reaction Allergy Type Onset Date Status lisinopril Lisinopril Unknown Drug Allergy Activ e losartan Losartan Unknown Drug Allergy Active REASON FOR VISIT Painful nail(s) aggravated by shoes causing difficulty standing/walking, Skin Problem Medications Medication SIG (Take, Route, Frequency, Duration) Notes Start Date End Date Status Metoprolol Succinate ER 25 MG Oral for 30 Days Active Aspirin Active Vitamin D3 Active amLODIPine Besylate Active Spironolactone-HCTZ Active Ciclopirox Olamine 0.77 % 1 application Externally Twice a day to skin of feet including between the toes for 30 days Active Venlafaxine HCl Acti ve Eliquis 5 MG TAKE ONE TABLET BY M OUTH TWICE A DAY Oral for 30 Days Active Social History Tobacco Use: Social History Observation Description Date Details (start date - stop date) Never Smoker NA - NA Tobacco Use/Smoking Question Answer Notes Are you a: nonsmoker Additional Findings: Tobacco Non-User Current no n-smoker Alcohol Screen Question Answer Notes Did you have a drink containing alcohol in the p ast year? Yes Points 0 Interpretation Negative Tobacco use other than smoking: Question Answer Notes Are you an other tobacco user? No Vital Signs Height 5 ft 1 in in 05/31/2024 Weight 190 lbs 05/31/2024 BMI 35.9 kg/m2 05/31/2024 Encounters Encounter Location Date Provider Diagnosis [facility] [address] [place] [address] 05/31/2024 Dinorah Butler Onychomycosis B35.1 ; Tinea pedis of both feet B35.3 ; Pain in right toe(s) M79.674 and Pain in left toe(s) M79.675 Assessments Encounter Date Diagnosis (ICD Code) Assessment Notes Treatment Notes Treatment Clinical Notes Section Notes 05/31/2024 Onychomycosis (ICD-10 - B35.1) Patient Educated with: FUNGUS NAIL INFECTIONS.pdf (FUNGUS NAIL INFECTIONS.pdf ) 05/31/2024 Tinea pedis of both feet (ICD-10 - B35.3) Patient Educated with: ATHELETE .pdf (ATHELETE .pdf) 05/31/2024 Pain in right toe(s) (ICD-10 - M79.674) 05/31/2024 Pain in left toe(s) (ICD-10 - M79.675) Plan Of Treatment Medication Medication Name Sig Start Date Stop Date Notes Ciclopirox Olamine 0.77 % 1 application Externally Twice a day to skin of feet including between the toes for 30 days Treatment Notes Assessment Notes Onychomycosis Patient Educated wit h: FUNGUS NAIL INFECTIONS.pdf (FUNGUS NAIL INFECTIONS.pdf) Tinea pedis of both feet Patient Educate d with: ATHELETE .pdf (ATHELETE .pdf) Next Appt Details Follow Up: prn, Reason: Provider Name:Dinorah Diggs Luke , 09/02/2024 09:00:00 AM, [address] [place], [address], Progress Notes * Lizbet NARAYANDOB:1940 (83 yo F)Acc No.[id number]:05/31/2024 Progress Notes Patient:?Lizbet Narayan Provider:?Dinorah Butler DPM :1940???Age:83 Y???Sex:Female D ate:05/31/2024 Address:[address] [place] [address], [place] [address], [facility] Pcp:Rosalio Lauren MD Subjective: * Chief Complaints: * ???Painful nail(s) aggravate d by shoes causing difficulty standing/walkingSkin Problem * HPI: ???Painful Nails:?Pt States Last PCP Visit:?Date:?05/13/2024 ???Skin problems:?Nature:?scaling , redness.?Location:?B/L .?Duration:?several days.?Course:?worse.? * ROS:?General/Constitutional:?Nausea?denies.?Vomiting?denies.?Hunger Thirst?denies.?Loss appetite?denies.?Chills?denies.?Fatigue?denies.?Fever?denies.?Night Sweats?denies.?Unexplained weight loss?denies.?Unexplained weight gain?denies.?HEENTM:?Dentures?denies.?Dizziness?admits.?Glasses/contacts?admits.?Retinopathy?de nies.?Blurred/double vision?denies.?TMJ?denies.?Discharge/drainage?denies.?Implants?denies.?Sore throat?denies.?Dental implants?denies.?Hard of hearing ?denies.?Difficulty chewing/swallowing/speaking?denies.?Nose bleeds?denies.?Sore mouth?denies.?Respiratory:?On Oxygen?denies.?Pneumonia/pleurisy?denies.?Bronchitis?denies.?Emphysema?denies.?C oughing?denies.?Cough blood?denies.?Shortness of breath?admits.?Wheezing?denies.?Cardiovascular:?Pacemaker?denies.?MVP?denies.?WPW?denies.?CHF?denies.?Heart attack?denies.?Septal defect?denies.?Rapid beat?admits.?Chest pain ?denies.?Atrial Fib.?admits.?Murmur/Palpitations?denies.?Gastrointestinal:?Hemorrhoids?denies.?Stomach/Abdominal pain?denies.?Dark blood stool?denies.?Irritable bowel ?denies.?Constipation?denies.?Diarrhea?denies.?Hematology:?Swelling?denies.?Clots?denies.?Varicose Veins?denies.?Bruising?denies.?Bleeding problem?denies.?Genitourinary:?Blood urine?denies.?Frequent/Painfu/urination/bladder control?denies.?Kidney stones?denies.?Infection (UTI)?denies.?Nephropathy?denies.?sex trans dis (STD)?denies.?Prostate?denies.?Musculoskeletal:?Hammertoes?denies.?Bunions?denies.?Back Pain?denies.?Muscle Cramps/ Resting?denies.?Muscle cramps / walking?denies.?Generalized aches and pains?admits.?Weakness?denies.?Integ.:?[place]?denies.?Scars?denies.?Corns/calluses?denies.?Ingrown nails?denies.?Painful nails?denies.?Open Sores?denies.?Rashes?denies.?Neurologic:?Difficulty sleeping?denies.?Brain disorder?denies.?Numbness?denies.?Balance trouble?denies.?Confusion?denies.?Fainting/blackouts?admits.?Tingling?denies.?Tr emors?denies.? * Medical History:? * Surgical History:?laminectom y 03/21/22right knee replacement 02/28/23left knee replacement 04/04/23retinal reattached, right 07/2018 * Hospitalization/Major Diagno stic Procedure:?No Hospitalization History. * Family History:?Mother: dece ased, diagnosed with Unspecified essential hypertension.?Father: , diagnosed with Family history of arthritis, Other malignant neoplasm of unspecified site.? * Social History:?Tobacco Use:?Tobacco Use/Smoking?Are you a:?nonsmoker ?Additional Findings: Tobacco Non-User?Current non-smoker ?Tobacco use other than smoking?Are you an other tobacco user??No ???Drugs/Alcohol:?Drugs?Have you used drugs other than those for medical reasons in the past 12 months??No ?Alcohol Screen?Did you have a drink containing alcohol in the past year??Yes ?Points?0 ?Interpretation?Negative ???Miscellaneous:?Caffeine: yes, frequency:, 1-2 cups per day. ?Children: yes, 1. ?no Exercise. ?Marital status: . ?Occupation: Retired teacher. * Medications:?TakingVenlafaxi ne HCl Spironolactone-HCTZ amLODIPine Besylate Vitamin D3 Aspirin Metoprolol Succinate ER 25 MG Tablet Extended Release 24 Hour Oral Eliquis 5 MG Tablet TAKE ONE TABLET BY MOUTH TWICE A DAY Oral Medication List reviewed and reconciled with the patientTaking Venlafaxine HCl Taking Spironolactone-HCTZ Taking amLODIPine Besylate Taking Vitamin D3 Taking Aspirin Taking Metoprolol Succinate ER 25 MG Tablet Extended Release 24 Hour Oral Taking Eliquis 5 MG Tablet TAKE ONE TABLET BY MOUTH TWICE A DAY Oral Medication List reviewed and reconciled with the patient * Allergies:?LosartanLisinopri audie[Allergies Verified] Objective: * Vitals:?Ht: 5 ft 1 in, Wt: 1 90, BMI: 35.9, Shoe size: 7, Ht-cm: 154.94 cm, Wt- k.18 kg. * Examination: ???General Examination: ?GENERAL APPEARANCE:?Reveals a pleasant, alert, well nourished, well- developed, well hydrated individual, who demonstrates proper attention to hygiene/body habitus, and is in no acute distress, Pt serves as own historian for office visit today.?ORIENTED:?person, place, and time.?Vascular: ?DP PULSES(B):?1/4 , B/L.?PT PULSES(B):?0/4 , B/L.?CAPILLARY FILL TIME:?delayed, all digits, B/L.?TROPHIC CONDITION-TEXTURE/ELASTICITY/TURGOR/HAIR GROWTH(B):?with sparse to absent hair growth.?TEMPERTURE GRADIENT(C):?decreased, cool to cool, proximal to distal, B/L.?PIGMENTATION:?rubrous , cyanotic , Forefoot , B/L.?EDEMA(C):?1/4 , non-pitting , B/L.?Dermatologic: ?SKIN FINDINGS:? Skin shows sign(s) of, erythema, scaling, in a moccasin fashion, no fissure(s) present, B/L.?Nails: ?NAILS are:?Elongated, overgrown, dystrophic, lytic, greater than 3mm thick, discolored and friable with crumbly malodorous subungual debris, with pain on palpation , 1-5 B/L.?Neurological: ?SENSORY:?Neurological exam reveals intact sensorium, pain sensation normal, vibration sensation intact, pinprick sensation is normal in the lower extremities, Pt denies, anesthesia, burning, paresthesia, tingling, B/L.?TINEL'S COMPRESSION:?Negative tarsal tunnel, lexie pedis, and medial calcaneal nerves.? Assessment: * Assessment: 1.?Onychomycosis - B35.1?2.? Tinea pedis of both feet - B35.3 (Primary), Acute problem, Uncomplicated (3),Rx drug management (4)?3.?Pain in right toe(s) - M79.674?4.?Pain in left toe(s) - M79.675? Plan: * Treatment: 2.?Onychomycosis? Notes: Patient Educated with: FUNGUS NAIL INFECTIONS.pdf (FUNGUS NAIL INFECTIONS.pdf)?? * Procedure Codes:? * Preventive Medicine:? ??Counseling:?Discussion:?-03: Office or other outpatient visit for the evaluation and management of a new patient, which required a medically appropriate history and/or examination and LOW level of DECISION MAKING for: 1 STABLE ACUTE UNCOMPLICATED PROBLEM, 2 OR MORE MINOR PROBLEMS, OR 1 STABLE CHRONIC PROBLEM, THAT POSE(S) A LOW RISK FOR MORBIDITY/MORTALITY. The visit on the day of the encounter encompassed interpreting the data and educating the patient as to the nature of their condition, treatment options available according to their individual PMH, meds, allergies, and overall health/living conditions, as well as any potential risks or complications that may occur from a failure to adhere to, and participate in, the recommended course of therapy. The discussion included a complete verbal, and/or written explanation of the examination results, any x-rays taken, the proposed diagnosis, and outline of the treatment plan. A schedule for future care needs was also explained. The patient verbalized an understanding of the instructions at this time and agreed to be an active participant in their treatment. If the patient should think of any questions or concerns after the visit, I have encouraged the patient to call the office.?Fungal Nail Counseling:?The patient was counseled on the diagnosis, potential etiologies (including, but not limited to, environmental factors, genetic, immune deficiency), and the multiple treatment options for Onychomycosis. We discussed the risks and benefits of each option from performing no treatment, to ultraviolet light shoe treatment, to laser nail treatment, to applying topical antifungals, to taking oral antifungal medication, to surgical removal of the involved nail(s) with or without performing a matricectomy, or any combination thereof. We discussed the advantages and disadvantages of each of possible treatment and importance for adherence to all the recommended therapies for optimum success. This includes the necessity for weekly emery board self nail home debridements, and control the nail and skin environment as much as possible by only using a fresh, dry pair of shoes/socks each day, as well as keeping the skin as dry as possible through the use of sprays/powders if necessary. The patient was instructed to discard the emery board after use to prevent reinfection of the involved nail(s). We discussed the mycological and visual clinical effectiveness of topical vs oral antifungal treatments as well as each ones potential side effects and/or any patient- specific medication interactions. We discussed the reasons behind the important requirement of regular liver function testing with oral antifungal therapy for safety. Patient questions regarding use, dosage, successful outcomes, blood tests, and possible pharmaceutical interactions were reviewed and the patient verbalized that all answers were clearly understood, Performance of this nail treatment by a nonprofessional would put this patients foot and overall health at risk. Therefore, debridement to affected nail(s) as described in exam was performed extensively to reduce/remove overall nail length, girth, thickness, subungual debris, and necrotic tissue, by manual and/or electrical means through the use of a nail nipper and/or dremel- type blanchard grinder operator, to a more viable healthy nail plate or bed tissue. Silver nitrate used for any petechial bleeding as necessary.?Tinea Pedis:?The patient was counseled on the diagnosis, potential etiologies, and treatment options for their skin condition. We discussed the risks and benefits of each option from performing no treatment, to utilizing OTC topical skin creams, prescription topical creams, customized compounded topical medications, and, if necessary, to utilize oral antifungal therapy. We discussed the advantages and disadvantages of each possible treatment and importance for adherence to all the recommended therapies for optimum success and avoid potential complications such as open sore/infection/possible hospitalization. We discussed the potential effectiveness of each topical preparation as well as each ones possible side effects and/or patient medication interactions if oral therapy is selected. Patient questions re: the advantages and disadvantages of each treatment choice, medication use/dosage, successful outcomes, and application consistency were reviewed and the patient verbalized that all answers were clearly understood. The patient was told they can help alleviate symptoms by utilizing moisture absorbant innersoles with activated charcoal and baking soda, applying antifungal sprays daily, aerating toe web spaces at night by putting cotton or lambs wool between the toes, alternating shoe gear daily if possible so they can dry out, changing socks at least once during the day, wearing well-ventilated shoes or sandals. The patient has decided to apply antifungal skin creams to their feet as directed. Rx was sent to their pharmacy at the time of visit.? ??Screening/Special Tests:?Fall Risk?Assessment:?Performed ?Screening:?No falls in the past year * Follow Up:?prn * Images: * Sign off status: Completed true * Provider:?Dinorah Butler DPM Date:?2023 Generated for Silva huber/Kamini/Aquiles on:?07/03/2024 06:48 PM EST History and Physical Notes * HPI (History of Present Illness) Category Sub-Category Detail Notes Category Not es Painful Nails Pt States Last PCP Visit: Date:: 05/13/2024 Skin problems Nature: scaling , redness Location: B/L Duration: several days Course: worse Examination Category Sub-Category Detail Notes Category Not es Neurological SENSORY: Neurological exa m reveals intact sensorium, pain sensation normal, vibration sensation intact, pinprick sensation is normal in the lower extremities, Pt denies, anesthesia, burning, paresthesia, tingling, B/L TINEL'S COMPRESSION: Negative tarsal chase judith, lexie pedis, and medial calcaneal nerves Dermatologic SKIN FINDINGS: Skin shows sign( s) of, erythema, scaling, in a moccasin fashion, no fissure(s) present, B/L General Examination GENERAL APPEARANCE: Reveals a pleasant, alert, well nourished, well-developed, well hydrated individual, who demonstrates proper attention to hygiene/body habitus, and is in no acute distress, Pt serves as own historian for office visit today ORIENTED: person, place, and t [place] Vascular DP PULSES(B): 1/4 , B/L PT PULSES(B): 0/4 , B/L CAPILLARY FILL TIME: delayed, all digits , B/L TEMPERTURE GRADIENT(C): decreased, cool to cool, proximal to distal, B/L TROPHIC CONDITION-TEXTURE/ELASTICITY/TURGOR/HAIR GROWTH(B): with sparse to absent hair growth EDEMA(C): 1/4 , non-pitting , B/L PIGMENTATION: rubrous , cyanotic , Forefoot , B/L Nails NAILS are: Elongated, overg rown, dystrophic, lytic, greater than 3mm thick, discolored and friable with crumbly malodorous subungual debris, with pain on palpation , 1-5 B/L
--- OUTSIDE RECORDS SUMMARY | 2024-07-03 18:48 | XMS_ITS | Patient Health Record ---
Author Organization [facility] Brandon willis [place] Address [address] [place] [address] Care Team Providers Care Automation Engineering Technician Name Role Phone Rosalio Lauren MD Primary Care Provider Unaalfonzo ilable Black, Dinorah Unavailable [phone] Allergies Allergen (clinical drug ingredient) Drug/Non Drug Allergy documented on EMR Reaction Allergy Type Onset Date Status lisinopril Lisinopril Unknown Drug Allergy Activ e losartan Losartan Unknown Drug Allergy Active Reason For Referral No Information Medications Medication SIG (Take, Route, Frequency, Duration) Notes Start Date End Date Status Metoprolol Succinate ER 25 MG Oral for 30 Days Active Aspirin Active Vitamin D3 Active amLODIPine Besylate Active Ciclopirox Olamine 0.77 % 1 application Externally Twice a day to skin of feet including between the toes for 30 days Active Spironolactone-HCTZ Active Venlafaxine HCl Acti ve Eliquis 5 [...] 05/31/2024 Encounters Encounter Location Date Provider Diagnosis [facility] [address] 05/31/2024 Dinorah Butler Onychomycosis B35.1 ; Tinea pedis of both feet B35.3 ; Pain in right toe(s) M79.674 and Pain in left toe(s) M79.675 [facility] [place] [address] [place] [address] 04/02/2024 Dinorah Butler Assessments Encounter Date Diagnosis (ICD Code) Assessment [...] toe(s) (ICD-10 - M79.675) Plan Of Treatment Next Appt Details Provider Name:Dinorah Butler , 09/02/2024 09:00:00 AM, [address] [place], [address], Insurance Providers Payer Name Payer Address Payer Phone Subscriber Number Group Number Insured Name Patient Relationship to Insured Coverage Start Date Coverage End Date Medicare National Govt Sv[employer] [address] [place] [address] [id number] Lizbet Gomez Self - patient is the insured [employer] [address] [place] [address] [id number] Franc Gomez Spouse - patient is the spouse of the insured Medical (General) History Medical History History ICD Code Arthritis Back,Hip,and Knee pain Depression Headaches/Migraines High Blood Pressure Measles Mumps Chicken pox Joint implants/screws A fib Surgical History Surgery Date(Month/Year) laminectomy 03/21/22 right knee replacement 02/28/23 left knee replacement 04/04/23 retinal reattached, right 07/2018
--- OUTSIDE RECORDS SUMMARY | 2024-07-03 18:48 | XMS_ITS ---
Author Organization [facility] Address [address] [place] [address] Care Team Providers Care Cable Assembler Name Role Phone Rosalio Lauren MD Primary Care Provider Unava ilable Dinorah Butler Unavailable [phone] REASON FOR VISIT REGULATORY INTERN PPWK Entered Encounters Encounter Location Date Provider Diagnosis [facility] [address] [place] [address] 04/02/2024 Dinorah Butler Plan Of Treatment Next Appt Details Provider Name:Dinorah Butler , 09/02/2024 09:00:00 AM, [address] [place], [address], Progress Notes * Lizbet NARAYANDOB:1940 (83 yo F)Acc No.[id number]:04/02/2024 Patient:?Lizbet Narayan :1940???Age:83 Y???Sex:Female Address:[address] [facility], [place], [address] * true * Date:? Generated for Lizi cecile/Kamini/eTransmitting on:?07/03/2024 06:48 PM EST
== END 2024-07-02 08:20 | disposition home or self-care (01) ==
LOC: HO.MAMMO 08:19
PROVIDERS: PCP Family Medicine; Visit Provider Family Medicine
DX: Z12.31 Encounter for screening mammogram for malignant neoplasm of breast (principal)
CPT/HCPCS: 77063; 77067

== ENCOUNTER → 2024-07-02 08:30 | Outpatient (BNV) | payer MEDICARE, OTHER, SELFPAY | PROVIDERS: PCP Family Medicine; Visit Provider Internal Medicine | DX: Z12.31 Encounter for screening mammogram for malignant neoplasm of breast (principal) | CPT/HCPCS: 77063; 77067 ==

== ENCOUNTER 2024-08-19 11:24 | Emergency (ER) | payer MEDICARE, OTHER, SELFPAY ==
--- NOTE | ~2024-08-19 | CT_ITS ---
EXAMINATION: CT THORACIC SPINE WITHOUT CONTRAST CLINICAL INFORMATION: Fall. COMPARISON: None available. TECHNIQUE: Axial 2 mm thin and reformatted 2 mm thin sagittal and coronal images of thoracic spine were obtained This CT examination was performed using dose optimization techniques as appropriate, variously including the following: *Automated exposure control *Adjustment of mA and/or kV according to patient size (this includes techniques or standardized protocols for targeted exams where dose is matched to indication/reason for exam; i.e. extremities or head) *Use of iterative reconstruction technique DLP: 879 mGy/cm. FINDINGS: Sagittal reconstructed images there is maintained thoracic kyphosis. The vertebral heights and alignment is normal. There is loss of all thoracic disc heights with ventral spondylosis. There is no visible acute fracture, dislocation or subluxation seen. No aggressive lytic or sclerotic process seen. Moderate ventral spondylosis seen throughout dorsal spine. There is a bilateral T11-12 slightly worse on the left and right T12-L1 facet joint arthropathy slightly worse on the left. Also visualizes right T10 costovertebral vertebral degenerative changes. The paravertebral soft tissues are normal. There is dependent scarring or atelectasis in lung bases. CT/CT thoracic spine wo IV con IMPRESSION: No visible acute fracture, dislocation. Mild ventral spondylosis and lower dorsal spine facet joint arthropathy. Fleischner guidelines were followed. Electronically signed by: Jose Vázquez MD 08/19/2024 01:38 PM [facility]
--- NOTE | ~2024-08-19 | CT_ITS ---
EXAMINATION: CT HEAD WITHOUT CONTRAST CLINICAL INFORMATION: Fall. COMPARISON: None available. TECHNIQUE: Contiguous axial imaging was performed from the skull base to vertex without intravenous administration of contrast. This CT examination was performed using dose optimization techniques as appropriate, variously including the following: *Automated exposure control *Adjustment of mA and/or kV according to patient size (this includes techniques or standardized protocols for targeted exams where dose is matched to indication/reason for exam; i.e. extremities or head) *Use of iterative reconstruction technique DLP: 663 FINDINGS: There is no acute intra-axial, extra-axial bleed, masses or midline shift. There is no acute infarction evolution. The lateral ventricles are symmetrical in size but moderately enlarged. The saul to white matter differentiation is maintained normal. Bone windows reveal no calvarial abnormality. The paranasal sinuses and mastoid air cells are well-aerated. There are punctate scattered calcifications in the frontal segment. . Small focal skin thickening is seen in the right frontal region on coronal image 37/19. CT/CT head/brain wo IV con IMPRESSION: No acute intracranial process Electronically signed by: Jose Vázquez MD 08/19/2024 01:25 PM EST
--- NOTE | ~2024-08-19 | CT_ITS ---
EXAMINATION: CT CERVICAL SPINE WITHOUT CONTRAST CLINICAL INFORMATION: Fall. COMPARISON: CT cervical spine 06/28/2023 TECHNIQUE: 3 mm thin axial and reformatted 2 mm thin sagittal and coronal images of cervical spine were obtained without contrast. This CT examination was performed using dose optimization techniques as appropriate, variously including the following: *Automated exposure control *Adjustment of mA and/or kV according to patient size (this includes techniques or standardized protocols for targeted exams where dose is matched to indication/reason for exam; i.e. extremities or head) *Use of iterative reconstruction technique DLP: 532 nGy. FINDINGS: On sagittal reconstructed images there is reversal of cervical lordosis with loss of C4-C5, C5-6 and C6-C7 disc heights. Rest of the disc heights are maintained normal. The vertebral heights and alignment is normal. The craniovertebral junction and the C1-C2 alignment is normal. There is no visible acute fracture, dislocation or subluxation seen. Mild left C3-4 facet joint arthropathy and hypertrophy is noted. There is bilateral mild narrowing of neural foramina at C4-5 on the left C5-6 bilaterally at C6 testis 7 disc levels from uncovertebral hypertrophic changes. There is a 1.3 x 1.3 cm exophytic lesion of the left thyroid lobe likely a small nodule measuring 24 also units. The prevertebral and paravertebral soft tissues are normal. The pharyngeal and tracheal airway appears widely patent. The lung apices are clear. CT/CT cervical spine wo IV con IMPRESSION: Reversal of cervical lordosis. The vertebral heights and alignment is normal. There are degenerative disc changes with spondylosis as described above. No visible acute fracture or dislocation seen. Exophytic lesion posterior to mid pole left thyroid lobe likely nodule. Recommend ultrasound correlation. Fleischner guidelines were followed. Electronically signed by: Jose Vázquez MD 08/19/2024 01:30 PM [facility]
--- NOTE | ~2024-08-19 | CT_ITS ---
EXAMINATION: CT LUMBAR SPINE WITHOUT CONTRAST CLINICAL INFORMATION: Fall, low back pain. COMPARISON: None available. TECHNIQUE: Axial 2 mm thin and reformatted 2 mm thin sagittal and coronal images of lumbar spine were obtained. This CT examination was performed using dose optimization techniques as appropriate, variously including the following: *Automated exposure control *Adjustment of mA and/or kV according to patient size (this includes techniques or standardized protocols for targeted exams where dose is matched to indication/reason for exam; i.e. extremities or head) *Use of iterative reconstruction technique DLP: 616 mGy/cm. FINDINGS: There is normal lumbar lordosis. There is a right at L3 laminectomy defect. The vertebral heights are normal. There is grade 1 anterolisthesis L3 over L4.. There is loss of disc height and disc desiccation changes at all lumbar disc levels. No lytic or sclerotic process seen. The paravertebral soft tissues are normal. There is moderate right elbow-2, bilateral L3-4, L4-5 and L5-S1 facet joint arthropathy and hypertrophy. No visible acute fracture, dislocation or subluxation seen. The prevertebral soft tissues are normal. SI joints are symmetrical and normal. The paravertebral soft tissues are normal. CT/CT lumbar spine wo IV con IMPRESSION: No acute fracture, dislocation or subluxation. Right L3 laminectomy defect. 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 Grade 1 anterolisthesis L3 over L4. No visible acute fracture or dislocation seen. Electronically signed by: Jose Vázquez MD 08/19/2024 01:43 PM EST
[2024-08-19 11:39] VITALS: BP 128/80; BP 151/72; PULSE 62; PULSE 70; RESP 18; TEMP 36; O2SAT 98; O2SAT 99; BMI 39.3
--- NOTE | 2024-08-19 11:59 | ED_ITS ---
HPI - General Adult General Chief complaint: Fall Stated complaint: FALL +CCOLLAR PER EMS Time Seen by Provider: 08/19/24 11:31 History of Present Illness ED Provider: Dr. Rodarte HPI narrative: 83 y/o F patient; PMH HTN, atrial fibrillation on Eliquis; presents from home via EMS with report of witnessed trip and fall down approx 3 - 6 steps immediately prior to arrival. Patient denies any prodrome proceeding fall. She states she turned around to greet a neighbor and missed her footing falling on her back down the steps. Her neighbor was an EMT lead trainer who assisted her at the bottom of the stairs. She was not ambulatory after the event. She primarily complains of occipital headache. She denies loss of consciousness. She denies: neck pain, back pain, abdominal pain, SOB, cough/congestion. She also reports mild right knee pain. Related Data Previous Rx's ?Medication ?Instructions ?Recorded aspirin 81 mg tablet,delayed 81 mg PO DAILY #30 tabs 01/11/24 release Allergies Allergy/AdvReac Type Severity Reaction Status Date / Time losartan [LOSARTAN] Allergy Severe TONGUE/THROAT Verified 08/19/24 11:42 SWELLING, anaphylaxis KERRY Inhibitors Allergy Unknown COUGHING Verified 02/12/24 09:23 [KERRY INHIBITORS] ARBs Allergy Unknown Unknown Verified 02/12/24 09:23 lisinopril Allergy Unknown cough Verified 02/12/24 09:23 MARTA Allergy Severe TONGUE/THROAT Uncoded 04/09/20 16:50 SWELLING KERRY Inhibitors Allergy Unknown cough Uncoded 10/24/18 00:00 KERRY inhibitors Allergy Unknown Unknown Uncoded 01/11/24 17:14 Review of Systems Review of Systems: Yes all other systems are reviewed and are negative [facility] Past Medical History Attestation statement: The following information was validated with the patient. Source: old records reviewed Social History Social History Alcohol intake: current Alcohol intake frequency: holidays/special occasions only Alcohol type: wine Advance Directives: Yes Advance Directives Information Provided: No Advance Directives on File: No Physical Exam ED Vital Signs: Vital Signs - 24 hr 08/19/24 11:39 Temperature 96.8 F Pulse Rate 62 Respiratory Rate 18 Blood Pressure 151/72 H Pulse Oximetry 98 Oxygen Delivery Method Room Air BMI result Body Mass Index 39.3 Patient is afebrile and hemodynamically stable, mildly hypertensive. Const General: cooperative and no acute distress HENMT Head: Yes normal to inspection and Yes atraumatic Eyes General: appearance normal, both eyes and all related structures Pupils: Equal, round and reactive pupils present EOM: EOMs intact bilaterally Neck Neck: Yes normal visual inspection, Yes full ROM, Yes supple and No tender Chest Chest palpation & inspection: normal inspection of the chest and normal palpation of entire chest wall Resp Effort & Inspection: normal respiratory effort, able to speak in complete sentences, no cough and no respiratory distress Auscultation: clear to auscultation bilaterally Cardio Rate: regular rate Rhythm: regular rhythm Peripheral pulses: Peripheral pulses 2+ throughout GI Inspection: Yes normal to inspection, No Abdominal wall edema and No distended Palpation (GI): Soft to palpation, not firm, nontender, no guarding and not rigid Auscultation: normal bowel sounds Back/Spine/Pelvis Back: No back tenderness Neuro Cranial nerves: Yes Equal, round and reactive pupils present Extrem General: Yes normal to inspection and Yes full ROM Course Course Course Narrative: Patient is afebrile and hemodynamically stable, mildly hypertensive. Will obtain CT Head and Spine. Patient offered Tylenol for analgesia but declined. Right knee has FROM, no tenderness to palpation, and lower extremity in NVI. CT Head unremarkable. Spinal CTs unremarkable. Patient is ambulating without difficulty. Plan: Discharge to home with PCP follow up Return precautions given Medical Decision Making Radiology Impression Discussion of test interpretation with radiology: I have reviewed the radiologist's reading. Radiologist Impression: CLINICAL INFORMATION: Fall. COMPARISON: None available. TECHNIQUE: Contiguous axial imaging was performed from the skull base to vertex without intravenous administration of contrast. This CT examination was performed using dose optimization techniques as appropriate, variously including the following: *Automated exposure control *Adjustment of mA and/or kV according to patient size (this includes techniques or standardized protocols for targeted exams where dose is matched to indication/reason for exam; i.e. extremities or head) *Use of iterative reconstruction technique DLP: 663 FINDINGS: There is no acute intra-axial, extra-axial bleed, masses or midline shift. There is no acute infarction evolution. The lateral ventricles are symmetrical in size but moderately enlarged. The saul to white matter differentiation is maintained normal. Bone windows reveal no calvarial abnormality. The paranasal sinuses and mastoid air cells are well-aerated. There are punctate scattered calcifications in the frontal segment. . Small focal skin thickening is seen in the right frontal region on coronal image 37/19. CT/CT head/brain wo IV con IMPRESSION: No acute intracranial process Electronically signed by: Jose Vázquez MD 08/19/2024 01:25 PM EST RP EXAMINATION: CT CERVICAL SPINE WITHOUT CONTRAST CLINICAL INFORMATION: Fall. COMPARISON: CT cervical spine 06/28/2023 TECHNIQUE: 3 mm thin axial and reformatted 2 mm thin sagittal and coronal images of cervical spine were obtained without contrast. This CT examination was performed using dose optimization techniques as appropriate, variously including the following: *Automated exposure control *Adjustment of mA and/or kV according to patient size (this includes techniques or standardized protocols for targeted exams where dose is matched to indication/reason for exam; i.e. extremities or head) *Use of iterative reconstruction technique DLP: 532 nGy. FINDINGS: On sagittal reconstructed images there is reversal of cervical lordosis with loss of C4-C5, C5-6 and C6-C7 disc heights. Rest of the disc heights are maintained normal. The vertebral heights and alignment is normal. The craniovertebral junction and the C1-C2 alignment is normal. There is no visible acute fracture, dislocation or subluxation seen. Mild left C3-4 facet joint arthropathy and hypertrophy is noted. There is bilateral mild narrowing of neural foramina at C4-5 on the left C5-6 bilaterally at C6 testis 7 disc levels from uncovertebral hypertrophic changes. There is a 1.3 x 1.3 cm exophytic lesion of the left thyroid lobe likely a small nodule measuring 24 also units. The prevertebral and paravertebral soft tissues are normal. The pharyngeal and tracheal airway appears widely patent. The lung apices are clear. CT/CT cervical spine wo IV con IMPRESSION: Reversal of cervical lordosis. The vertebral heights and alignment is normal. There are degenerative disc changes with spondylosis as described above. No visible acute fracture or dislocation seen. Exophytic lesion posterior to mid pole left thyroid lobe likely nodule. Recommend ultrasound correlation. Fleischner guidelines were followed. Electronically signed by: Jose Vázquez MD 08/19/2024 01:30 PM EST RP EXAMINATION: CT THORACIC SPINE WITHOUT CONTRAST CLINICAL INFORMATION: Fall. COMPARISON: None available. TECHNIQUE: Axial 2 mm thin and reformatted 2 mm thin sagittal and coronal images of thoracic spine were obtained This CT examination was performed using dose optimization techniques as appropriate, variously including the following: *Automated exposure control *Adjustment of mA and/or kV according to patient size (this includes techniques or standardized protocols for targeted exams where dose is matched to indication/reason for exam; i.e. extremities or head) *Use of iterative reconstruction technique DLP: 879 mGy/cm. FINDINGS: Sagittal reconstructed images there is maintained thoracic kyphosis. The vertebral heights and alignment is normal. There is loss of all thoracic disc heights with ventral spondylosis. There is no visible acute fracture, dislocation or subluxation seen. No aggressive lytic or sclerotic process seen. Moderate ventral spondylosis seen throughout dorsal spine. There is a bilateral T11-12 slightly worse on the left and right T12-L1 facet joint arthropathy slightly worse on the left. Also visualizes right T10 costovertebral vertebral degenerative changes. The paravertebral soft tissues are normal. There is dependent scarring or atelectasis in lung bases. CT/CT thoracic spine wo IV con IMPRESSION: No visible acute fracture, dislocation. Mild ventral spondylosis and lower dorsal spine facet joint arthropathy. Fleischner guidelines were followed. Electronically signed by: Jose Vázquez MD 08/19/2024 01:38 PM [facility] EXAMINATION: CT LUMBAR SPINE WITHOUT CONTRAST CLINICAL INFORMATION: Fall, low back pain. COMPARISON: None available. TECHNIQUE: Axial 2 mm thin and reformatted 2 mm thin sagittal and coronal images of lumbar spine were obtained. This CT examination was performed using dose optimization techniques as appropriate, variously including the following: *Automated exposure control *Adjustment of mA and/or kV according to patient size (this includes techniques or standardized protocols for targeted exams where dose is matched to indication/reason for exam; i.e. extremities or head) *Use of iterative reconstruction technique DLP: 616 mGy/cm. FINDINGS: There is normal lumbar lordosis. There is a right at L3 laminectomy defect. The vertebral heights are normal. There is grade 1 anterolisthesis L3 over L4.. There is loss of disc height and disc desiccation changes at all lumbar disc levels. No lytic or sclerotic process seen. The paravertebral soft tissues are normal. There is moderate right elbow-2, bilateral L3-4, L4-5 and L5-S1 facet joint arthropathy and hypertrophy. No visible acute fracture, dislocation or subluxation seen. The prevertebral soft tissues are normal. SI joints are symmetrical and normal. The paravertebral soft tissues are normal. CT/CT lumbar spine wo IV con IMPRESSION: No acute fracture, dislocation or subluxation. Right L3 laminectomy defect. 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 Grade 1 anterolisthesis L3 over L4. No visible acute fracture or dislocation seen. Electronically signed by: Jose Vázquez MD 08/19/2024 01:43 PM [facility] Discharge Plan Discharge Clinical Impression: Fall (on) (from) other stairs and steps, initial encounter Patient Disposition: Home, Self-Care Instructions: Fall Prevention for Older Adults (ED) Additional Instructions: As we discussed, you were seen today after a fall. Your had CT scans of your head and back - there was no new trauma or injury to the bones. Please follow up with your PCP within the next 1 - 2 days for re-evaluation. Return to the emergency department with any concerns. Prescriptions: No Action aspirin 81 mg tablet,delayed release (DR/EC) 81 mg PO DAILY Qty: 30 0RF Print Language: Thai
[2024-08-19 14:09] VITALS: BP 151/72; PULSE 62; RESP 18; TEMP 36; O2SAT 98
--- OUTSIDE RECORDS SUMMARY | 2024-08-19 17:05 | XMS_ITS ---
Author [facility] Address [address] [place] [address] Care Team Providers Care Recruitment Manager Name Role Phone Rosalio Lauren MD Primary Care Provider Unava ilable Black, Dinorah Unavailable [phone] Allergies Allergen (clinical drug ingredient) Drug/Non Drug [...] 05/31/2024 Encounters Encounter Location Date Provider Diagnosis [facility] [address] [place] [address] 05/31/2024 Dinorah Butler Onychomycosis B35.1 ; Tinea [...] Diggs Luke , 09/02/2024 09:00:00 AM, [address] [place], [address], Progress Notes * Lizbet NARAYANDOB:1940 (83 yo F)Acc No.[id number]:05/31/2024 Progress Notes Patient:?Lizbet Narayan Provider:?Dinorah Butler DPM :1940???Age:83 Y???Sex:Female D ate:05/31/2024 Address:[address] [place] [address], [place] [address], [facility] Pcp:Rosalio Lauren MD Subjective: * Chief Complaints: [...] of a nail nipper and/or dremel- type crankshaft grinder, to a more viable healthy nail plate [...] Butler DPM Date:?2023 Generated for Silva huber/Kamini/Aquiles on:?08/19/2024 05:05 PM EST History and Physical Notes * [...] person, place, and t south Vascular DP PULSES (B): 1/4 , B/L PT PULSES (B): 0/4 , B/L CAPILLARY FILL TIME: delayed, all digits , B/L TEMPERTURE GRADIENT (C): decreased, cool to cool, proximal to distal, B/L TROPHIC CONDITION-TEXTURE/ELASTICITY/TURGOR/HAIR GROWTH (B): with sparse to absent hair growth EDEMA (C): 1/4 , non-pitting , B/L PIGMENTATION: rubrous , cyanotic , Forefoot , B/L Nails NAILS are: Elongated, overg rown, dystrophic, lytic, greater than 3mm thick, discolored and friable with crumbly malodorous subungual debris, with pain on palpation , 1-5 B/L
--- OUTSIDE RECORDS SUMMARY | 2024-08-19 17:05 | XMS_ITS ---
Author Organization [facility] Address [address] [place] [address] Care Team Providers Care Gas Appliance Installer Name Role Phone Rosalio Lauren MD Primary Care Provider Unava ilable Dinorah Butler Unavailable [phone] REASON FOR VISIT APARTMENT MAINTENANCE PPWK Entered Encounters Encounter Location Date Provider Diagnosis [facility] [address] [place] [address] 04/02/2024 Dinorah Butler Plan Of Treatment Next Appt Details Provider Name:Dinorah Dontae Butler , 09/02/2024 09:00:00 AM, [address] [place], [address], Progress Notes * Lizbet NARAYANDOB:1940 (83 yo F)Acc No.[id number]:04/02/2024 Patient:?Lizbet Narayan :1940???Age:83 Y???Sex:Female Address:[address] [facility], [place], [address] * true * Date:? Generated for Lizi cecile/Kamini/eTransmitting on:?08/19/2024 05:05 PM EST
--- OUTSIDE RECORDS SUMMARY | 2024-08-19 17:06 | XMS_ITS | Patient Health Record ---
Author Organization [facility] [place] Address [address] [place] [address] Care Team Providers Care Steel Spar Operator Name Role Phone Rosalio Lauren MD Primary Care Provider Unaalfonzo ilable Black, Dinorah Unavailable [phone] Allergies Allergen (clinical drug ingredient) Drug/Non Drug [...] 05/31/2024 Encounters Encounter Location Date Provider Diagnosis [facility] [address] 05/31/2024 Dinorah Butler Onychomycosis B35.1 ; Tinea pedis of both feet B35.3 ; Pain in right toe(s) M79.674 and Pain in left toe(s) M79.675 [facility] [address] [place] [address] 04/02/2024 Dinorah Butler Assessments Encounter Date Diagnosis [...] Name:Dinorah Butler , 09/02/2024 09:00:00 AM, [address] [place], [address], Insurance Providers Payer Name Payer Address Payer Phone Subscriber Number Group Number Insured Name Patient Relationship to Insured Coverage Start Date Coverage End Date Medicare National Govt Svcs Inc [address] [facility] [place] [address] [id number] Lizbet Gomez Self - patient is the insured [employer] [address] [place] [address] [id number] Franc Gomez Spouse - patient is the spouse of the insured Medical (General) History Medical History History ICD Code Arthritis Back,Hip,and Knee pain Depression Headaches/Migraines High Blood Pressure Measles Mumps Chicken pox Joint implants/screws A fib Surgical History Surgery Date(Month/Year) laminectomy 03/21/22 right knee replacement 02/28/23 left knee replacement 04/04/23 retinal reattached, right 07/2018
== END 2024-08-19 14:10 | disposition home or self-care (01) ==
PROVIDERS: Emergency Provider Emergency Medicine; PCP Family Medicine
DX: R51.9 Headache, unspecified (principal); M25.561 Pain in right knee; M54.50 Low back pain, unspecified; Z91.81 History of falling
CPT/HCPCS: 70450; 72125; 72128; 72131; 99282; 99284

== ENCOUNTER → 2024-08-19 11:56 | Outpatient (BNV) | payer MEDICARE, OTHER, SELFPAY | PROVIDERS: Emergency Provider Emergency Medicine; PCP Family Medicine; Visit Provider Radiology Diagnostic Radiology | DX: S39.92XA Unspecified injury of lower back, initial encounter (principal); S19.9XXA Unspecified injury of neck, initial encounter; M54.9 Dorsalgia, unspecified; S09.90XA Unspecified injury of head, initial encounter | CPT/HCPCS: 70450; 72125; 72128; 72131 ==

== ENCOUNTER 2024-10-24 01:54 | Emergency (ER) | payer MEDICARE, OTHER, SELFPAY ==
--- NOTE | 2024-10-24 | ECG_ITS ---
Test Reason : papitations Blood Pressure : */* mmHG Vent. Rate : 111 BPM Atrial Rate : * BPM P-R Int : * ms QRS Dur : 86 ms QT Int : 340 ms P-R-T Axes : * 0 12 degrees QTcB Int : 462 ms Atrial fibrillation with rapid ventricular response Low voltage QRS Abnormal ECG When compared with ECG of 12-Feb-2024 09:21, Atrial fibrillation has replaced Sinus rhythm Criteria for Anterolateral infarct are no longer Present Referred By: Generic ED Physician Electronically Signed By: EUNICE FORTUNE
--- NOTE | ~2024-10-24 | XR_ITS ---
CLINICAL HISTORY: chest palpitations 1 view chest x-ray Comparison: CR/NC/SR - XR CHEST 1V - 01/11/24 17:21 EDT Findings: The lungs are clear. Normal size heart. No acute fracture. IMPRESSION: 1. No acute findings. This document has been electronically signed by: Dave Wallace MD, PHD on 10/24/2024 03:07:05
[2024-10-24 02:06] VITALS: BP 131/81; PULSE 107; RESP 11; TEMP 36.7; O2SAT 93; BMI 39.3
[2024-10-24 02:12] VITALS: BP 164/99; PULSE 130
[2024-10-24 02:16] VITALS: BP 131/81; PULSE 107; RESP 11; TEMP 36.7; O2SAT 93
[2024-10-24 02:16] LABS: MANUAL DIFF FLAG NO
[2024-10-24 02:17] LABS: Basophils Percent Auto 0.5 % (0-2); Eosinophils Absolute Auto 0.1 X10*3/uL (0.0-0.4); Eosinophils Percent Auto 0.7 % (0-4); Hematocrit 48.2 % (37.0-47.0); Hemoglobin 16.6 g/dl (12.0-16.0); Imm Gran Abs Auto 0.02 X10*3/uL (0.00-0.03); Imm Gran Pct Auto 0.2 % (0.0-0.4); Lymphocytes Percent Auto 37.4 % (20-40); Mean Corpuscular HGB Conc 34.4 g/dl (31.0-35.0); Mean Corpuscular Hemoglobin 29.1 pg (27.0-33.0); Mean Corpuscular Volume 84.6 fL (80.0-98.0); Mean Platelet Volume 10.8 fL (9.4-12.3); Monocytes Absolute Auto 0.8 X10*3/uL (0.1-1.2); Monocytes Percent Auto 9.7 % (2-11); Neutrophils Absolute Auto 4.1 x10*3/uL (2.0-8.3); Neutrophils Percent Auto 51.5 % (45-73); Platelet Count 219 X10*3/uL (160-400); White Blood Count 8.1 X10*3/uL (4.8-10.8)
--- NOTE | 2024-10-24 02:21 | ED.ARRPALP ---
HPI - Arrhythmia/Palpitations General Chief Complaint: Arrhythmia/Palpitations Stated Complaint: AFIB Time Seen by Provider: 10/24/24 02:16 Source: patient Mode of arrival: ambulatory Limitations: no limitations History of Present Illness ED Provider: HPI narrative: Patient is on the increased stress as her friend 6 hours ago does have history of AFib on Eliquis and metoprolol 25 mg daily around 23:00 noticed her heart rate was fast going to 140s when she checked at home took extra dose of metoprolol when she arrived until the heart rate fluctuating between 110 and 140 no chest pain no dizziness no shortness a breath Related Data Previous Rx's ?Medication ?Instructions ?Recorded aspirin 81 mg tablet,delayed 81 mg PO DAILY #30 tabs 01/11/24 release Allergies Allergy/AdvReac Type Severity Reaction Status Date / Time losartan [LOSARTAN] Allergy Severe TONGUE/THROAT Verified 10/24/24 02:10 SWELLING, anaphylaxis KERRY Inhibitors Allergy Unknown COUGHING Verified 10/24/24 02:10 [KERRY INHIBITORS] ARBs Allergy Unknown Unknown Verified 10/24/24 02:10 lisinopril Allergy Unknown cough Verified 10/24/24 02:10 MARTA Allergy Severe TONGUE/THROAT Uncoded 04/09/20 16:50 SWELLING KERRY Inhibitors Allergy Unknown cough Uncoded 10/24/18 00:00 KERRY inhibitors Allergy Unknown Unknown Uncoded 01/11/24 17:14 Review of Systems Review of Systems: Yes all other systems are reviewed and are negative [facility] Social History Social History Alcohol intake: current Alcohol intake frequency: a few times a week Alcohol type: wine and hard liquor Smoked in Last 30 Days: No Use of substances other than those prescribed or required for medical reasons: No Advance Directives: No Advance Directives Information Provided: Yes Physical Exam Vital Signs: Vital Signs: Last Vital Signs Temp 98.0 F 10/24/24 02:16 Pulse 107 H 10/24/24 02:16 Resp 11 L 10/24/24 02:16 BP 131/81 10/24/24 02:16 Pulse Ox 93 10/24/24 02:16 O2 Del Method Room Air 10/24/24 02:16 BMI result Body Mass Index 39.3 Appearance: Alert. Oriented X3. No acute distress. Eyes: No pallor or icterus ENT: Pharynx normal. Oral Mucosa moist Neck: Normal inspection. Neck supple. CVS: Irregularly irregular heart rate tachycardic. Pulses normal. Respiratory: No respiratory distress. Equal air entry bilateral, no wheezing/rales/rhonchi Abdomen: Soft and nontender. Bowel sounds are present, no mass palpable, no CVA tenderness Skin: Skin warm and dry. Normal skin color. Normal skin turgor. Extremities: No lower extremity edema. No calf tenderness Neuro: Oriented X 3. No motor deficit. No sensory deficit.No cerebellar signs , cranial nerves II-XII intact Medications Administered Discontinued Medications Generic Name Dose Route Start Last Admin Trade Name Freq PRN Reason Stop Dose Admin Metoprolol Tartrate 5 mg 10/24/24 02:22 10/24/24 02:41 Metoprolol Tartrate 5 Mg/5 Ml Vial IVPUSH 10/24/24 02:23 5 mg ONCE ONE Administration Protocol Medical Decision Making Medical Decision Making [facility] Narrative: 03:30 Patient has paroxysmal AFib with stable labs converted to normal sinus rhythm after Lopressor will discharge patient home Lab Data [facility] Lab Attestation statement: I reviewed the patient's lab results. 10/24/24 02:12 10/24/24 02:12 Labs: Lab Results 10/24/24 Range/Units 02:12 WBC 8.1 (4.8-10.8) X10*3/uL RBC 5.70 H (4.20-5.50) X10*6/uL Hgb 16.6 H (12.0-16.0) g/dl Hct 48.2 H (37.0-47.0) % MCV 84.6 (80.0-98.0) fL MCH 29.1 (27.0-33.0) pg MCHC 34.4 (31.0-35.0) g/dl RDW 13.0 (11.0-16.0) % Plt Count 219 (160-400) X10*3/uL MPV 10.8 (9.4-12.3) fL Immature Gran % (Auto) 0.2 (0.0-0.4) % Neut % (Auto) 51.5 (45-73) % Lymph % (Auto) 37.4 (20-40) % Chester % (Auto) 9.7 (2-11) % Eos % (Auto) 0.7 (0-4) % Baso % (Auto) 0.5 (0-2) % Lymph # (Auto) 3.0 (1.2-4.9) X10*3/uL Chester # (Auto) 0.8 (0.1-1.2) X10*3/uL Eos # (Auto) 0.1 (0.0-0.4) X10*3/uL Baso # (Auto) 0.0 (0.0-0.2) X10*3/uL Abs Immat Gran (auto) 0.02 (0.00-0.03) X10*3/uL Absolute Neuts (auto) 4.1 (2.0-8.3) x10*3/uL Absolute Nucleated RBC 0.000 (0.0-0.012) X10*3/uL Nucleated RBC % (auto) 0.0 (0.0-0.2) /100WBC PT 12.6 H (10.9-12.4) SEC INR 1.1 (0.9-1.1) Sodium 140 (135-145) mmol/L Potassium 5.3 H D (3.3-5.1) mmol/L Chloride 109 H (96-108) mmol/L Carbon Dioxide 20 L (22-29) mmol/L Anion Gap 16 (12-20) BUN 26 H (9-16) mg/dL Creatinine 0.78 (0.5-1.4) mg/dL Estim Creat Clear Calc 57.3 Estimated GFR > 60 Random Glucose 154 H (60-115) mg/dL Calcium 9.3 D (8.4-10.2) mg/dL Total Bilirubin 0.4 (0.0-1.0) mg/dL AST 59 H (5-31) U/L ALT 19 (0-31) U/L Alkaline Phosphatase 98 (39-117) U/L Troponin I High Sens < 2.7 (<3.5-17.0) ng/L Total Protein 7.6 (6.5-8.0) g/dL Albumin 3.7 (3.5-5.0) g/dL Independent Interpretation I performed an independent interpretation of an: EKG Interpretation: AFib with ventricular rate 111 beats per minute no acute ST-T changes no acute ischemia Discharge Plan Discharge Clinical Impression: Atrial fibrillation Patient Disposition: Home, Self-Care Instructions: A-fib (Atrial Fibrillation) (ED) Additional Instructions: Continue medications as prescribed by electromechanisms design drafter Follow up with your PCP/electromechanisms design drafter Prescriptions: No Action aspirin 81 mg tablet,delayed release (DR/EC) 81 mg PO DAILY Qty: 30 0RF Print Language: Portuguese
[2024-10-24 02:29] LABS: INTERNATIONAL NORM RATIO 1.1 (0.9-1.1); Prothrombin Time 12.6 SEC (10.9-12.4)
[2024-10-24 02:37] LABS: Troponin-I High Sensitivity < 2.7 ng/L (<3.5-17.0)
[2024-10-24 02:40] LABS: Alanine Aminotransferase 19 U/L (0-31); Albumin Level 3.7 g/dL (3.5-5.0); Alkaline Phosphatase 98 U/L (39-117); Anion Gap 16 (12-20); Aspartate Amino Transferase 59 U/L (5-31); Bilirubin Total 0.4 mg/dL (0.0-1.0); Blood Urea Nitrogen 26 mg/dL (9-16); Calcium 9.3 mg/dL (8.4-10.2); Carbon Dioxide 20 mmol/L (22-29); Chloride 109 mmol/L (96-108); Creatinine Clr Calc Pharmacy 57.3; Estimated Glomerular Filt Rate > 60; Glucose Random 154 mg/dL (60-115); Potassium 5.3 mmol/L (3.3-5.1); Sodium 140 mmol/L (135-145); Total Protein 7.6 g/dL (6.5-8.0)
[2024-10-24] MEDS: Metoprolol Tartrate 5 MG/5 ML VIAL IVPUSH (02:41)
--- OUTSIDE RECORDS SUMMARY | 2024-10-24 03:03 | XMS_ITS ---
Author Organization [facility] Address [address] [place] [address] Care Team Providers Care Mattress And Boxsprings Supervisor Name Role Phone Rosalio Lauren MD Primary Care Provider Unava ilable Dinorah Butler Unavailable [phone] REASON FOR VISIT DIRECTOR OF SERVICES PPWK Entered Encounters Encounter Location Date Provider Diagnosis [facility] [address] [place] [address] 04/02/2024 Dinorah Butler Plan Of Treatment Next Appt Details Provider Name:Dinorah Butler , 12/12/2024 09:15:00 AM, [address] [place], [address], Progress Notes * Lizbet NARAYANDOB:1940 (83 yo F)Acc No.[id number]:04/02/2024 Patient:?Lizbet Narayan :1940???Age:83 Y???Sex:Female Address:[address], [place], [address] * true * Date:? Generated for Lizi cecile/Kamini/eTransmitting on:?10/24/2024 03:02 AM EDT
--- OUTSIDE RECORDS SUMMARY | 2024-10-24 03:03 | XMS_ITS ---
[facility] Address [address] [place] [address] Care Team Providers Care Link Machine Operator Name Role Phone Rosalio Lauren MD Primary Care Provider Unava ilable Black, Dinorah Unavailable [phone] Allergies Allergen (clinical drug ingredient) Drug/Non Drug Allergy documented on EMR Reaction Allergy Type Onset Date Status lisinopril Lisinopril Unknown Drug Allergy Activ e losartan Losartan Unknown Drug Allergy Active REASON FOR VISIT Painful nail(s) aggravated by shoes causing difficulty standing/walking, Skin Problem Medications Medication SIG (Take, Route, Frequency, Duration) Notes Start Date End Date Status Spironolactone-HCTZ Active Venlafaxine HCl Acti ve amLODIPine Besylate Active Eliquis 5 MG TAKE ONE TABLET BY M OUTH TWICE A DAY Oral for 30 Days Active Ciclopirox Olamine 0.77 % 1 application Externally Twice a day to skin of feet including between the toes for 30 days Active Vitamin D3 Active Aspirin Active Metoprolol Succinate ER 25 MG Oral for 30 Days Active Social History Tobacco Use: Social History Observation Description Date Details (start date - stop date) Never Smoker NA - NA Tobacco use other than smoking: Question Answer Notes Are you an other tobacco user? No Tobacco Control (Standard) Question Answer Notes Tobacco use: Nonsmoker Additional Findings: Tobacco non-user Current no nsmoker AUDIT-C (Standard) Question Answer Notes Did you have a drink containing alcohol in the p ast year? No Points 0 Interpretation Negative Vital Signs Height 5 ft 1 in in 09/02/2024 Weight 193 lbs 09/02/2024 BMI 36.46 kg/m2 09/02/2024 Procedures Procedure Date Ordered Date Performed Result Body Sit e [id number]-[id number] NAIL, 6 OR MORE 09/02/2024 N/A Encounters Encounter Location Date Provider Diagnosis [facility] [address] [address] 09/02/2024 Dinorah Butler Onychomycosis B35.1 ; Tinea pedis of both feet B35.3 ; Pain in right toe(s) M79.674 and Pain in left toe(s) M79.675 Assessments Encounter Date Diagnosis (ICD Code) Assessment Notes Treatment Notes Treatment Clinical Notes Section Notes 09/02/2024 Onychomycosis (ICD-10 - B35.1) 09/02/2024 Tinea pedis of both feet (ICD-10 - B35.3) 09/02/2024 Pain in right toe(s) (ICD-10 - M79.674) 09/02/2024 Pain in left toe(s) (ICD-10 - M79.675) Plan Of Treatment Pending Test Test Name Order Date [id number] NAIL, 6 OR MORE 09/02/2024 Next Appt Details Follow Up: prn, Reason: Provider Name:Dinorah Butler , 12/12/2024 09:15:00 AM, [address] [place] [address], [phone], Procedure Notes * Category Sub-Category Detail Notes Debride Nail 6-10 Nail debridement Due to the cl inical pathology outlined in the exam findings, performance of this nail treatment is medically necessary as its management by an unskilled/untrained nonprofessional would put this patients foot and overall health at risk. Therefore, debridement to affected nail(s), as described in exam ( TA, T1, T2, T3, T4, T5, T6, T7, T8, T9, ), was performed exclusively by the physician of record to reduce/remove overall nail length, girth, thickness, subungual debris, and necrotic tissue, by manual and/or electrical means through the use of a nail nipper and/or dremel-type diamond grinder, to a more viable healthy nail plate or bed tissue 6-10 nails in total. Silver nitrate was used for any petechial bleeding as necessary. Definitive antifungal treatment options, both pharmaceutical and surgical, have been reviewed and discussed with the patient. The patient solely prefers the use of intermittent/as needed professional debridement services for their nail condition and understands the need for additional periodic treatments to maintain effectiveness in symptomatic relief - 86322 Progress Notes * Lizbet NARAYANDOB:1940 (83 yo F)Acc No.[id number]:09/02/2024 Progress Note Patient:?Lizbet NARAYAN Provider:?Dinorah Butler DPM :1940???Age:83 Y???Sex:Female D ate:09/02/2024 Address:[address] [place], [place] [id number] Pcp:Rosalio Lauren MD Subjective: * Chief Complaints: * ???Painful nail(s) aggravate d by shoes causing difficulty standing/walkingSkin Problem * HPI: ???Painful Nails:?Pt States Last PCP Visit:?Date:?05/13/2024 ???Skin problems:?Nature:?scaling , redness.?Location:?B/L .?Duration:?several days.?Course:?, improved, at 90 %.?Treatments:?Medication (Ciclopirox Olamine 0.77 Cream), states adherence to recommended treatment application.? * ROS:?General/Constitutional:?Nausea?denies.?Vomiting?denies.?Hunger Thirst?denies.?Loss appetite?denies.?Chills?denies.?Fatigue?denies.?Fever?denies.?Night Sweats?denies.?Unexplained weight loss?denies.?Unexplained weight gain?denies.?HEENTM:?Dentures?denies.?Dizziness?admits.?Glasses/contacts?admits.?Retinopathy?de nies.?Blurred/double vision?denies.?TMJ?denies.?Discharge/drainage?denies.?Implants?denies.?Sore throat?denies.?Dental implants?denies.?Hard of hearing ?denies.?Difficulty chewing/swallowing/speaking?denies.?Nose bleeds?denies.?Sore mouth?denies.?Respiratory:?On Oxygen?denies.?Pneumonia/pleurisy?denies.?Bronchitis?denies.?Emphysema?denies.?C oughing?denies.?Cough blood?denies.?Shortness of breath?admits.?Wheezing?denies.?Cardiovascular:?Pacemaker?denies.?MVP?denies.?WPW?denies.?CHF?denies.?Heart attack?denies.?Septal defect?denies.?Rapid beat?admits.?Chest pain ?denies.?Atrial Fib.?admits.?Murmur/Palpitations?denies.?Gastrointestinal:?Hemorrhoids?denies.?Stomach/Abdominal pain?denies.?Dark blood stool?denies.?Irritable bowel ?denies.?Constipation?denies.?Diarrhea?denies.?Hematology:?Swelling?denies.?Clots?denies.?Varicose Veins?denies.?Bruising?denies.?Bleeding problem?denies.?Genitourinary:?Blood urine?denies.?Frequent/Painfu/urination/bladder control?denies.?Kidney stones?denies.?Infection (UTI)?denies.?Nephropathy?denies.?sex trans dis (STD)?denies.?Prostate?denies.?Musculoskeletal:?Hammertoes?denies.?Bunions?denies.?Back Pain?denies.?Muscle Cramps/ Resting?denies.?Muscle cramps / walking?denies.?Generalized aches and pains?admits.?Weakness?denies.?Integ.:?Menon?denies.?Scars?denies.?Corns/calluses?denies.?Ingrown nails?denies.?Painful nails?,admits.?Open Sores?denies.?Rashes?denies.?Neurologic:?Difficulty sleeping?denies.?Brain disorder?denies.?Numbness?denies.?Balance trouble?denies.?Confusion?denies.?Fainting/blackouts?admits.?Tingling?denies.?Tr emors?denies.? * Medical History:? * Surgical History:?laminectom y 03/21/22right knee replacement 02/28/23left knee replacement 04/04/23retinal reattached, right 07/2018 * Hospitalization/Major Diagno stic Procedure:?Denies Past Hospitalization * Family History:?Mother: dece ased, diagnosed with Unspecified essential hypertension.?Father: , diagnosed with Other malignant neoplasm of unspecified site, Family history of arthritis.? * Social History:?Tobacco Use:?Tobacco use other than smoking?Are you an other tobacco user??No ?Tobacco Control (Standard)?Tobacco use:?Nonsmoker ?Additional Findings: Tobacco non-user?Current nonsmoker ???Drugs/Alcohol:?Drugs?Have you used drugs other than those for medical reasons in the past 12 months??No ???Miscellaneous:?Caffeine: yes, frequency:, 1-2 cups per day. ?Children: yes, 1. ?Exercise: no. ?Marital status: . ?Occupation: Retired teacher. ???Drug/Alcohol:?AUDIT-C (Standard)?Did you have a drink containing alcohol in the past year??No ?Points?0 ?Interpretation?Negative * Medications:?TakingCiclopiro x Olamine 0.77 % Cream 1 application Externally Twice a day to skin of feet including between the toes Venlafaxine HCl Spironolactone- HCTZ amLODIPine Besylate Vitamin D3 Aspirin Metoprolol Succinate ER 25 MG Tablet Extended Release 24 Hour Oral Eliquis 5 MG Tablet TAKE ONE TABLET BY MOUTH TWICE A DAY Oral Medication List reviewed and reconciled with the patientTaking Ciclopirox Olamine 0.77 % Cream 1 application Externally Twice a day to skin of feet including between the toes Taking Venlafaxine HCl Taking Spironolactone-HCTZ Taking amLODIPine Besylate Taking Vitamin D3 Taking Aspirin Taking Metoprolol Succinate ER 25 MG Tablet Extended Release 24 Hour Oral Taking Eliquis 5 MG Tablet TAKE ONE TABLET BY MOUTH TWICE A DAY Oral Medication List reviewed and reconciled with the patient * Allergies:?LosartanLisinopri audie[Allergies Verified] Objective: * Vitals:?Ht: 5 ft 1 in, Wt: 1 93, BMI: 36.46, Shoe size: 7, Ht-cm: 154.94 cm, Wt- k.54 kg. * Examination: ???General Examination: ?GENERAL APPEARANCE:?Reveals a pleasant, alert, well nourished, well- developed, well hydrated individual, who demonstrates proper attention to hygiene/body habitus, and is in no acute distress, Pt serves as own historian for office visit today.?ORIENTED:?person, place, and time.?Vascular: ?DP PULSES (B):?1/4 , B/L.?PT PULSES (B):?0/4 , B/L.?CAPILLARY FILL TIME:?delayed, all digits, B/L.?TROPHIC CONDITION-TEXTURE/ELASTICITY/TURGOR/HAIR GROWTH (B):?with sparse to absent hair growth.?TEMPERTURE GRADIENT (C):?decreased, cool to cool, proximal to distal, B/L.?PIGMENTATION:?rubrous , cyanotic , Forefoot , B/L.?EDEMA (C):?1/ , non-pitting , B/L.?Dermatologic: ?SKIN FINDINGS:? Skin shows sign(s) of, erythema, scaling, in a moccasin fashion, no fissure(s) present, B/L,approximately 90? percent LESS.?Nails: ?NAILS are:?Elongated, overgrown, dystrophic, lytic, greater than 3mm thick, discolored and friable with crumbly malodorous subungual debris, with pain on palpation ,, TA, T1, T2, T3, T4, T5, T6, T7, T8, T9.?Neurological: ?SENSORY:?Neurological exam reveals intact sensorium, pain sensation normal, vibration sensation intact, pinprick sensation is normal in the lower extremities, Pt denies, anesthesia, burning, paresthesia, tingling, B/L.? Assessment: * Assessment: 1.?Onychomycosis - B35.1 (Pr imary)???2.?Tinea pedis of both feet - B35.3???Specify :Acute problem, Uncomplicated (3),Rx drug management (4)???3.?Pain in right toe(s) - M79.674???4.?Pain in left toe(s) - M79.675??? Plan: * Treatment: * Procedures:?Debride Nail 6-10:?Nail debridement?Due to the clinical pathology outlined in the exam findings, performance of this nail treatment is medically necessary as its management by an unskilled/untrained nonprofessional would put this patients foot and overall health at risk. Therefore, debridement to affected nail(s), as described in exam ( TA, T1, T2, T3, T4, T5, T6, T7, T8, T9,? ), was performed exclusively by the physician of record to reduce/remove overall nail length, girth, thickness, subungual debris, and necrotic tissue, by manual and/or electrical means through the use of a nail nipper and/or dremel-type diamond grinder, to a more viable healthy nail plate or bed tissue 6- 10 nails in total. Silver nitrate was used for any petechial bleeding as necessary. Definitive antifungal treatment options, both pharmaceutical and surgical, have been reviewed and discussed with the patient. The patient solely prefers the use of intermittent/as needed professional debridement services for their nail condition and understands the need for additional periodic treatments to maintain effectiveness in symptomatic relief - 55122.? * Procedure Codes:?54675 DEBRI DE NAIL, 6 OR MORE, Modifiers: XS * Preventive Medicine:? ??Screening/Special Tests:?Fall Risk?Assessment:?Not performed, no reason specified ?Plan of Care:?Not documented, no reason specified ?Screening:?One fall without injury in the past year ?FALLS: Screening for Future Fall Risk?Have you had any falls with injury in the past year??No * Follow Up:?prn * Images: * Sign off status: Completed true * Provider:?Dinorah Butler DPM Date:?2024 Generated for Silva huber/Kamini/Aquiles on:?10/24/2024 03:02 AM EDT History and Physical Notes * HPI (History of Present Illness) Category Sub-Category Detail Notes Category Not es Painful Nails Pt States Last PCP Visit: Date:: 05/13/2024 Skin problems Nature: scaling , redness Location: B/L Duration: several days Course: , improved, at 90 % Treatments: Medication (Ciclopir ox Olamine 0.77 Cream), states adherence to recommended treatment application Examination Category Sub-Category Detail Notes Category Not es Neurological SENSORY: Neurological exa m reveals intact sensorium, pain sensation normal, vibration sensation intact, pinprick sensation is normal in the lower extremities, Pt denies, anesthesia, burning, paresthesia, tingling, B/L TINEL'S COMPRESSION: Dermatologic SKIN FINDINGS: Skin shows sign( s) of, erythema, scaling, in a moccasin fashion, no fissure(s) present, B/L,approximately 90 percent LESS General Examination GENERAL APPEARANCE: Reveals a pleasant, [...] malodorous subungual debris, with pain on palpation ,, TA, T1, T2, T3, T4, T5, T6, T7, T8, T9
--- OUTSIDE RECORDS SUMMARY | 2024-10-24 03:03 | XMS_ITS | Patient Health Record ---
Author Organization [facility] Address [address] [place] [address] Care Team Providers Care Navy Material Inspector Name Role Phone Rosalio Lauren MD Primary Care Provider Unaalfonzo ilable Black, Dinorah Unavailable [phone] Allergies Allergen (clinical drug ingredient) Drug/Non Drug Allergy documented on EMR Reaction Allergy Type Onset Date Status lisinopril Lisinopril Unknown Drug Allergy Activ e losartan Losartan Unknown Drug Allergy Active Reason For Referral No Information Medications Medication SIG (Take, Route, Frequency, Duration) Notes Start Date End Date Status Spironolactone-HCTZ Active Venlafaxine HCl Acti ve Vitamin D3 Active amLODIPine Besylate Active Aspirin Active Eliquis 5 MG TAKE ONE TABLET BY M OUTH TWICE A DAY Oral for 30 Days Active Metoprolol Succinate ER 25 MG Oral for 30 Days Active Ciclopirox Olamine 0.77 % 1 application Externally Twice a day to skin of feet including between the toes for 30 days Active Social History Tobacco Use: Social History [...] Ordered Date Performed Result Body Sit e 29260-OMPPUMQ NAIL, 6 OR MORE 09/02/2024 N/A Encounters Encounter Location Date Provider Diagnosis [address] [address] 05/31/2024 Dinorah Butler Onychomycosis B35.1 ; Tinea pedis of both feet B35.3 ; Pain in right toe(s) M79.674 and Pain in left toe(s) M79.[address] [address] 09/02/2024 Dinorah Butler Onychomycosis B35.1 ; Tinea pedis of both feet B35.3 ; Pain in right toe(s) M79.674 and Pain in left toe(s) M79.[address] [address] 04/02/2024 Dinorah Butler Assessments Encounter Date Diagnosis (ICD Code) Assessment Notes Treatment Notes Treatment Clinical Notes Section Notes 05/31/2024 Onychomycosis (ICD-10 - B35.1) Patient Educated with: FUNGUS NAIL INFECTIONS.pdf (FUNGUS NAIL INFECTIONS.pdf ) 05/31/2024 Tinea pedis of both feet (ICD-10 - B35.3) Patient Educated with: ATHELETE .pdf (ATHELETE .pdf) 09/02/2024 Onychomycosis (ICD-10 - B35.1) 09/02/2024 Tinea pedis of both feet (ICD-10 - B35.3) 09/02/2024 Pain in right toe(s) (ICD-10 - M79.674) 05/31/2024 Pain in right toe(s) (ICD-10 - M79.674) 05/31/2024 Pain in left toe(s) (ICD-10 - M79.675) 09/02/2024 Pain in left toe(s) (ICD-10 - M79.675) Plan Of Treatment Pending Test Test Name Order Date 13069-AIEKMOQ NAIL, 6 OR MORE 09/02/2024 Next Appt Details Provider Name:Dinorah Butler , 12/12/2024 09:15:00 AM, [address] [place] [address], [phone], Insurance Providers Payer Name Payer Address Payer Phone Subscriber Number Group Number Insured Name Patient Relationship to Insured Coverage Start Date Coverage End Date Medicare National [employer]t [employer] [address] [place] [address] [id number] Lizbet Gomez Self - patient is the insured [employer] [address] [place] [address] [id number] Franc Gomez Spouse - patient is the spouse of the insured Medical (General) History Medical History History ICD Code Arthritis Back,Hip,and Knee pain Depression Headaches/Migraines High Blood Pressure Measles Mumps Chicken pox Joint implants/screws A fib Surgical History Surgery Date(Month/Year) laminectomy 03/21/22 right knee replacement 02/28/23 left knee replacement 04/04/23 retinal reattached, right 07/2018
--- OUTSIDE RECORDS SUMMARY | 2024-10-24 03:03 | XMS_ITS ---
Author [facility] Address [address] [place] [address] Care Team Providers Care Toll Gate Tender Name Role Phone Rosalio Lauren MD Primary Care Provider Unava ilable Black, Dinorah Unavailable [phone] Allergies Allergen (clinical drug ingredient) Drug/Non Drug [...] 05/31/2024 Encounters Encounter Location Date Provider Diagnosis [facility] [address] [address] 05/31/2024 Dinorah Butler Onychomycosis B35.1 ; Tinea [...] prn, Reason: Provider Name:Dinorah Diggs Luke , 12/12/2024 09:15:00 AM, [address] [place], [address], Progress Notes * Lizbet NARAYANDOB:1940 (83 yo F)Acc No.[id number]:05/31/2024 Progress Notes Patient:?Lizbet Narayan Provider:?Dinorah Butler DPM :1940???Age:83 Y???Sex:Female D ate:05/31/2024 Address:[address] [place] [address], [place] [address], [facility] Pcp:Rosalio Lauren MD Subjective: * Chief Complaints: [...] of a nail nipper and/or dremel- type sugar grinder, to a more viable healthy nail [...] Butler DPM Date:?2023 Generated for Silva huber/Kamini/Aquiles on:?10/24/2024 03:02 AM [...]
--- NOTE | 2024-10-24 03:31 | ECG_ITS ---
Test Reason : at fib Blood Pressure : */* mmHG Vent. Rate : 65 BPM Atrial Rate : 65 BPM P-R Int : 190 ms QRS Dur : 84 ms QT Int : 396 ms P-R-T Axes : 69 -7 16 degrees QTcB Int : 411 ms Normal sinus rhythm Normal ECG When compared with ECG of 24-Oct-2024 02:09, Sinus rhythm has replaced Atrial fibrillation Vent. rate has decreased by 46 bpm Referred By: Adam Shen Electronically Signed By: EUNICE FORTUNE
[2024-10-24 03:36] VITALS: BP 119/71; PULSE 69; RESP 12; O2SAT 98
[2024-10-24 04:10] VITALS: BP 119/71; PULSE 69; RESP 12; TEMP 36.4; O2SAT 98
== END 2024-10-24 04:11 | disposition home or self-care (01) ==
PROVIDERS: Emergency Provider Internal Medicine; PCP Family Medicine
DX: I48.0 Paroxysmal atrial fibrillation (principal); R00.0 Tachycardia, unspecified; Z79.01 Long term (current) use of anticoagulants; Z79.82 Long term (current) use of aspirin
CPT/HCPCS: 36415; 71045; 80053; 84484; 85025; 85610; 93005; 96374; 99284

== ENCOUNTER → 2024-10-24 02:09 | Outpatient (BNV) | payer MEDICARE, OTHER, SELFPAY | PROVIDERS: Emergency Provider Internal Medicine; PCP Family Medicine; Visit Provider Internal Medicine | DX: R00.2 Palpitations (principal); I48.91 Unspecified atrial fibrillation | CPT/HCPCS: 93010 ==

== ENCOUNTER → 2024-10-24 02:30 | Outpatient (BNV) | payer MEDICARE, OTHER, SELFPAY | PROVIDERS: Emergency Provider Internal Medicine; PCP Family Medicine; Visit Provider General Practice | DX: R00.2 Palpitations (principal) | CPT/HCPCS: 71045 ==

== ENCOUNTER 2025-02-03 19:24 | Emergency (ER) | payer MEDICARE, OTHER, SELFPAY ==
[2025-02-03 19:29] VITALS: BP 140/74; PULSE 81; RESP 16; TEMP 36.4; O2SAT 96; BMI 39.3
--- NOTE | 2025-02-03 19:33 | ECG_ITS ---
Test Reason : PALPITATIONS Blood Pressure : */* mmHG Vent. Rate : 75 BPM Atrial Rate : 75 BPM P-R Int : 186 ms QRS Dur : 82 ms QT Int : 376 ms P-R-T Axes : -1 -4 19 degrees QTcB Int : 419 ms Normal sinus rhythm Low voltage QRS Borderline ECG When compared with ECG of 24-Oct-2024 03:33, No significant change was found Referred By: Generic ED Physician Electronically Signed By: EUNICE FORTUNE
--- NOTE | 2025-02-03 19:34 | ED_ITS ---
HPI - General Adult General Chief complaint: Arrhythmia/Palpitations Stated complaint: A-fib Time Seen by Provider: 02/03/25 20:42 Source: patient Mode of arrival: ambulatory Limitations: no limitations History of Present Illness ED Provider: Amisha White PA-C HPI narrative: Patient is an 84 year old assigned female at with a history of atrial fib on an anti-coagulation medication and Metoprolol presenting to the emergency department today with concerns of being in atrial fibrillation now. Patient states that she had palpitations earlier, did a home EKG that showed atrial fib, took an additional dose of her metoprolol and thought she should come be evaluated. Patient denies any dizziness, lightheadedness, abdominal pain, nausea, vomiting, fever, chills, blurry vision, double vision, loss of vision, chest pain, difficulty breathing, shortness of breath, back pain, night sweats, pain with urination, increased urinary frequency, increased urinary urgency, blood in her urine or stool, syncope or a near syncopal episode, recent trauma or falls, bowel incontinence, bladder incontinence, or any other complaints at this time. Relieving factors: none Exacerbating factors: none Associated symptoms: denies other symptoms Treatments prior to arrival: other (additional dose of home metoprolol) Related Data Previous Rx's ?Medication ?Instructions ?Recorded aspirin 81 mg tablet,delayed 81 mg PO DAILY #30 tabs 0 01/11/24 release Allergies Allergy/AdvReac Type Severity Reaction Status Date / Time losartan (LOSARTAN) Allergy Severe TONGUE/THROAT Verified 02/03/25 19:33 SWELLING, anaphylaxis KERRY Inhibitors (KERRY Allergy Unknown COUGHING Verified 02/03/25 19:33 INHIBITORS) ARBs Allergy Unknown Unknown Verified 02/03/25 19:33 lisinopril Allergy Unknown cough Verified 02/03/25 19:33 MARTA Allergy Severe TONGUE/THROAT Uncoded 02/03/25 19:33 SWELLING KERRY Inhibitors Allergy Unknown cough Uncoded 02/03/25 19:33 KERRY inhibitors Allergy Unknown Unknown Uncoded 02/03/25 19:33 Review of Systems 2 Constitutional: Constitutional: Reports no additional constitutional complaints, Denies chills, Denies fever(s) and Denies night sweats Eyes: Eyes: Reports no additional eye complaints, Denies blurry vision, Denies change in vision, Denies diplopia, Denies eye discharge, Denies loss of vision and Denies eye pain ENT: Denies dizziness Cardiovascular: Cardiovascular: Reports no additional cardiovascular complaints, Denies chest pain, Denies lightheadedness, Denies Loss of Consciousness, Reports palpitations and Denies dyspnea Respiratory: Respiratory: Reports no additional respiratory complaints and Denies dyspnea Gastrointestinal: Gastrointestinal: Reports no additional gastrointestinal complaints, Denies abdominal pain, Denies melena, Denies hematochezia, Denies change in bowel habits and Denies change in stool character Genitourinary: Genitourinary: Denies hematuria, Denies urinary frequency, Denies dysuria, Denies urinary incontinence, Denies urinary hesitancy and Denies urinary urgency Musculoskeletal: Musculoskeletal: Reports no additional musculoskeletal complaints, Denies numbness and Denies tingling Neurologic: Denies dizziness, Denies loss of vision, Denies numbness and Denies tingling Psychiatric: Psychiatric: Reports no additional psychiatric complaints Endocrine: Endocrine: Reports no additional endocrine complaints and Reports palpitations Hematologic/Lymphatic: Hematologic/Lymphatic: Reports no additional hematologic/lymphatic complaints Allergic/Immunologic: Allergic/Immunologic: Reports no additional allergic/immunologic complaints PMFSH Past Medical History Attestation statement: The following information was validated with the patient. Source: old records reviewed and nursing notes reviewed Social History Social History Alcohol intake: current Alcohol intake frequency: a few times a week Alcohol type: wine and hard liquor Do you have a plan to hurt others: No Plan Physical Exam ED Vital Signs: Vital Signs - 24 hr 02/03/25 19:29 Temperature 97.5 F Pulse Rate 81 Respiratory Rate 16 Blood Pressure 140/74 H Pulse Oximetry 96 Oxygen Delivery Method Room Air BMI result Body Mass Index 39.3 Const General: cooperative, no acute distress, alert and awake Nutritional Appearance: well nourished Orientation/consciousness: patient oriented x3 HENMT Head: Yes normal to inspection and Yes atraumatic Ears: hearing grossly normal bilaterally and external ears normal General nose exam: Normal external nose present, no nasal discharge noted and no epistaxis Face and sinus: Yes normal facial exam, No abrasion and No laceration Mouth: Normal oral and palatal mucosa present, no drooling and no muffled voice Eyes General: appearance normal, both eyes and all related structures Periorbital: periorbital findings normal Eyelids: Yes eyelids normal Conjunctivae: conjunctivae normal Pupils: Equal, round and reactive pupils present EOM: EOMs intact bilaterally Neck Neck: Yes normal visual inspection, Yes full ROM and Yes no lymphadenopathy Resp Effort & Inspection: normal respiratory effort and able to speak in complete sentences Cardio Rate: regular rate Rhythm: regular rhythm Neuro General: patient oriented x3, moves all extremities and CN's II-XI intact bilaterally Cranial nerves: Yes Equal, round and reactive pupils present Cognition (Neuro): normal cognition Extrem General: Yes normal to inspection, Yes full ROM and Yes capillary refill normal Psych Appearance: grossly normal Mental Status: mental status grossly normal Affect: normal affect Attitude: cooperative Thought process: Normal thought process present Thought content: Normal thought content present Insight: Good insight present (Psych) Course Course Course Narrative: RME performed by Amisha White PA-C. Patient is an 84 year old assigned female at presenting to the emergency department with atrial fib. Patient states that she has a history of it, is on an anti-coagulant medication, and took an extra dose of her metoprolol because of her being in atrial fib. Detailed physical exam and review of systems are deferred to the security installer. EKG and labs ordered. Patient placed back in the waiting room pending room availability and results. Medical Decision Making Medical Decision Making MDM Narrative: Patient is an 84 year old assigned female at with a history of atrial fib on an anti-coagulation medication and Metoprolol presenting to the emergency department today with concerns of being in atrial fibrillation now. Patient's physical exam was unremarkable. Patient's blood work was unremarkable. Patient's EKG was unremarkable and showed normal sinus rhythm. I explained my physical exam findings as well as all test results to the patient. I answered all questions asked by the patient. I stressed the importance of the patient taking her medication as directed (either prescribed or as the over the counter packaging recommends). I stressed the importance of the patient following up with her primary care provider and her missile facilities repairer. I stressed the importance of the patient returning to the emergency department immediately if her symptoms were to worsen or if she were to develop any dizziness, shortness of breath, difficulty breathing, chest pain, blurry vision, loss of vision, nausea, vomiting, abdominal pain, fever, chills, back pain, or any other complaints. Patient verbalized agreement and understanding with this treatment plan and discharge. Differential Diagnosis Differential Diagnoses: The differential diagnosis associated with the presentation includes Palpitations Atrial fib Admission/Observation Consideration of admission/observation: Escalation of care including admission/observation considered Patient would have been admitted to the hospital had her work up had any findings where hospital admission was appropriate and her clinical presentation warranted hospital admission. Lab Data [facility] Lab Attestation statement: I reviewed the patient's lab results. My interpretation of these results are in the [facility] Rationale portion of this note. 02/03/25 19:47 02/03/25 19:47 Labs: Lab Results 02/03/25 Range/Units 19:47 WBC 7.2 (4.8-10.8) X10*3/uL RBC 5.24 (4.20-5.50) X10*6/uL Hgb 15.6 (12.0-16.0) g/dl Hct 46.7 (37.0-47.0) % MCV 89.1 (80.0-98.0) fL MCH 29.8 (27.0-33.0) pg MCHC 33.4 (31.0-35.0) g/dl RDW 13.2 (11.0-16.0) % Plt Count 239 (160-400) X10*3/uL MPV 10.7 (9.4-12.3) fL Immature Gran % (Auto) 0.1 (0.0-0.4) % Neut % (Auto) 51.8 (45-73) % Lymph % (Auto) 37.3 (20-40) % Kemper % (Auto) 9.2 (2-11) % Eos % (Auto) 1.0 (0-4) % Baso % (Auto) 0.6 (0-2) % Lymph # (Auto) 2.7 (1.2-4.9) X10*3/uL Kemper # (Auto) 0.7 (0.1-1.2) X10*3/uL Eos # (Auto) 0.1 (0.0-0.4) X10*3/uL Baso # (Auto) 0.0 (0.0-0.2) X10*3/uL Abs Immat Gran (auto) 0.01 (0.00-0.03) X10*3/uL Absolute Neuts (auto) 3.7 (2.0-8.3) x10*3/uL Absolute Nucleated RBC 0.000 (0.0-0.012) X10*3/uL Nucleated RBC % (auto) 0.0 (0.0-0.2) /100WBC PT 11.3 (10.9-12.4) SEC INR 1.0 (0.9-1.1) Sodium 139 (135-145) mmol/L Potassium 3.5 D (3.3-5.1) mmol/L Chloride 106 (96-108) mmol/L Carbon Dioxide 22 (22-29) mmol/L Anion Gap 15 (12-20) BUN 23 H (9-16) mg/dL Creatinine 0.99 (0.5-1.4) mg/dL Estim Creat Clear Calc 45.1 Estimated GFR 54 Random Glucose 146 H (60-115) mg/dL Calcium 9.3 (8.4-10.2) mg/dL Magnesium 1.9 (1.6-2.6) mg/dL Total Bilirubin 0.4 (0.0-1.0) mg/dL AST 25 (5-31) U/L ALT 19 (0-31) U/L Alkaline Phosphatase 82 (39-117) U/L B-Natriuretic Peptide 52 (<100) pg/mL Total Protein 6.5 (6.5-8.0) g/dL Albumin 3.8 (3.5-5.0) g/dL Independent Interpretation I performed an independent interpretation of an: EKG Interpretation: I independently interpreted this EKG and am in agreement with the below findings: Vent. Rate: 75 BPM Atrial Rate: 75 BPM P-R Int: 186 ms QRS Dur: 82 ms QT Int: 376 ms P-R-T Axes: -1 -4 19 degrees QTcB Int: 419 ms Normal sinus rhythm Low voltage QRS When compared with ECG of 24-Oct-2024 03:33, No significant change was found DD/ 35 Discharge Plan Discharge Clinical Impression: Palpitations Patient Disposition: Home, Self-Care Instructions: Heart Palpitations (DC) Additional Instructions: Follow up with your primary care provider. Return to the emergency department immediately if your symptoms worsen or if you develop any numbness, tingling, dizziness, shortness of breath, difficulty breathing, chest pain, blurry vision, loss of vision, nausea, vomiting, abdominal pain, fever, chills, back pain, or any other complaints. Please see the information below about our Patient Portal. If you are not yet enrolled in the [facility] Patient Portal, you will receive an enrollment email invitation following your visit to any [facility] setting. You may also self-enroll in the Patient Portal by visiting our website: [email or web address] The following information is required to access the Patient Portal: - Your [facility] Medical Record Number - Your personal home email address (must match what is in your electronic medical record, Registration staff can assist with this) - Name - Date of Capabilities of the Patient Portal: - Message some providers - View upcoming appointments - Access your health summary, medical history, and visit history - View current conditions and allergies - View procedure and lab results - View your medications, including guidelines, side effects, and precautions - Complete pre-appointment questionnaires requested by your provider - Ready summary reports of your office visits and procedures To access the Patient Portal Mobile Deny, follow these directions: - Search [employer] in the Deny Store or [employer] Store - Download the Deny - Search for [facility] - Enter your login/password Prescriptions: No Action aspirin 81 mg tablet,delayed release (DR/EC) 81 mg PO DAILY Qty: 30 0RF Referrals: Rosalio Lauren MD [Primary Care Provider, Internal Medicine] Print Language: Frisian
[2025-02-03 19:54] LABS: MANUAL DIFF FLAG NO
[2025-02-03 20:01] LABS: INTERNATIONAL NORM RATIO 1.0 (0.9-1.1); Prothrombin Time 11.3 SEC (10.9-12.4)
[2025-02-03 20:08] LABS: Alanine Aminotransferase 19 U/L (0-31); Albumin Level 3.8 g/dL (3.5-5.0); Alkaline Phosphatase 82 U/L (39-117); Anion Gap 15 (12-20); Aspartate Amino Transferase 25 U/L (5-31); Blood Urea Nitrogen 23 mg/dL (9-16); Calcium 9.3 mg/dL (8.4-10.2); Carbon Dioxide 22 mmol/L (22-29); Chloride 106 mmol/L (96-108); Creatinine Clr Calc Pharmacy 45.1; Estimated Glomerular Filt Rate 54; Magnesium 1.9 mg/dL (1.6-2.6); Potassium 3.5 mmol/L (3.3-5.1); Sodium 139 mmol/L (135-145); Total Protein 6.5 g/dL (6.5-8.0)
[2025-02-03 20:10] LABS: Hematocrit 46.7 % (37.0-47.0); Hemoglobin 15.6 g/dl (12.0-16.0); Imm Gran Abs Auto 0.01 X10*3/uL (0.00-0.03); Imm Gran Pct Auto 0.1 % (0.0-0.4); Lymphocytes Absolute Auto 2.7 X10*3/uL (1.2-4.9); Mean Corpuscular HGB Conc 33.4 g/dl (31.0-35.0); Mean Corpuscular Hemoglobin 29.8 pg (27.0-33.0); Mean Corpuscular Volume 89.1 fL (80.0-98.0); NRBC Abs Auto 0.000 X10*3/uL (0.0-0.012); NRBC Pct Auto 0.0 /100WBC (0.0-0.2); Platelet Count 239 X10*3/uL (160-400); Red Blood Count 5.24 X10*6/uL (4.20-5.50); White Blood Count 7.2 X10*3/uL (4.8-10.8)
[2025-02-03 20:29] LABS: B Type Natriuretic Peptide 52 pg/mL (<100)
[2025-02-03 21:24] VITALS: BP 139/68; PULSE 75; RESP 16; TEMP 36.1; O2SAT 96
== END 2025-02-03 21:24 | disposition home or self-care (01) ==
LOC: HO.ED 21:04
PROVIDERS: Physician Assistant Medical; Emergency Provider Emergency Medicine; PCP Family Medicine
DX: R00.2 Palpitations (principal); I48.91 Unspecified atrial fibrillation; Z79.01 Long term (current) use of anticoagulants
CPT/HCPCS: 36415; 80053; 83735; 83880; 85025; 85610; 93005; 99283

== ENCOUNTER → 2025-02-03 19:33 | Outpatient (BNV) | payer MEDICARE, OTHER, SELFPAY | PROVIDERS: Emergency Provider Emergency Medicine; PCP Family Medicine; Visit Provider Internal Medicine | DX: R00.2 Palpitations (principal) | CPT/HCPCS: 93010 ==

== ENCOUNTER 2025-07-15 07:21 | Outpatient (REF) | payer MEDICARE, OTHER, SELFPAY ==
--- OUTSIDE RECORDS SUMMARY | 2025-03-31 03:30 | XMS_ITS ---
Author Organization [facility] Address [address] [place] [address] Care Team Providers Care Global Process Owner Name Role Phone Rosalio Lauren MD Primary Care Provider Unava ilDinorah Wan [phone] Encounters Encounter Location Date Provider Diagnosis [facility] [address] [place] [address] 03/31/2025 Dinorah Butler Plan Of Treatment No Information Progress Notes * Lizbet NARAYANDOB:1940 (84 yo F)Acc No.[id number]:03/31/2025 Progress Note Patient: Lizbet HENRIQUEZ Provider: Trinity Butler DPM :1940 A ge:84 Y S ex:Female Date:03/31/2025 Address:[address] [place], [place] [id number] Pcp:Rosalio Lauren MD Subjective: * Chief Complaints: * * Medical History: Objective: * Vitals: Assessment: Plan: * Treatment: * Images: * The named appointment provid er may or may not be the originator of this progress note, and it is not deemed complete until electronically signed by the appointment provider. Sign off status: Pending * Provider: Trinity Butler DPM Date: 0 03/31/2025 Generated for Printi ng/Faxing/eTransmitting on: 09/15/2024 07:24 AM EST
--- NOTE | ~2025-07-15 | MM_ITS ---
EXAMINATION: MM SCREENING DIGITAL BREAST TOMOSYNTHESIS, BILATERAL CLINICAL INFORMATION: Screening. Asymptomatic. COMPARISON: Mammography: Comparison is made with available priors TECHNIQUE: Digital breast mammography with tomosynthesis is performed in both the craniocaudal and mediolateral oblique views along with computer-aided detection (CAD). FINDINGS: There are scattered areas of fibroglandular density. There are no significant masses, abnormal calcifications, or other abnormalities. MM/MM tomosynthesis screening BI IMPRESSION: No mammographic evidence of malignancy. ASSESSMENT: BI-RADS Category 1: Negative RECOMMENDATION: Routine annual mammography screening. 1 year F/U This examination should not preclude the clinical evaluation of a suspicious palpable abnormality. This patient's information was entered into a reminder system with a target due date for their next mammogram. Electronically signed by: Lakshmi Gibson DO 07/16/2025 03:38 PM AKOSUA
--- OUTSIDE RECORDS SUMMARY | 2025-07-15 07:24 | XMS_ITS | Patient Health Record ---
Author Organization [facility] Address [address] [place] [address] Care Team Providers Care Trainmaster Name Role Phone Yudi (RETIRED) Tristan HOUSTON Primary Care Provide Raheem Matos Jr Unavailable [phone] Allergies Allergen (clinical drug ingredient) Drug/Non Drug Allergy documented on EMR Reaction Allergy Type Onset Date Status losartan Losartan Potassium Unknown Drug Allergy Active Reason For Referral No Information Medications Medication SIG (Take, Route, Frequency, Duration) Notes Start Date End Date Status Effexor XR 150 MG Capsule Extended Release 24 Hour 1 capsule with food Orally Once a day Active amLODIPine Besylate 10 MG Tablet 1 tablet Orally Once a day Active Vitamin B12 100 MCG Tablet 1 tablet Oral ly Once a day Active Lexapro 20 MG Tablet 1 tablet Orally Onc e a day Active Simvastatin 40 MG Tablet 1 tablet in the evening Orally Once a day Active Fish Oil 875 MG Capsule Orally Active Vitamin D 2000 UNIT Capsule Orally Active Colyte with Flavor Packs 240 GM Solution Reconstituted As directed Orally Over the specified time.; Duration: 1 day(s) 12/17/2014 Active Triamterene Active Immunizations Vaccine Route Administration Date Status Comme nts Flu vaccine no Preserv 3 and > Unknown 04/30/2014 Admin istered Social History Social History Additional Details Category Social Info Options Details Miscellaneous: Marital status: Occupation: retired Problems Problem Type SNOMED Code ICD Code Onset Dates Problem Status W/U Status Risk Notes Problem Colon cancer screening (244621826) Colon cancer screening (V76.51) Active confirmed Problem Long-term drug therapy (247012307) Encounter for long-term (current) use of other high-risk medications (V58.69) Active confirmed Plan Of Treatment Future Test Test Name Order Date COLONOSCOPY 12/17/2014 Insurance Providers Payer Name Payer Address Payer Phone Subscriber Number Group Number Insured Name Patient Relationship to Insured Coverage Start Date Coverage End Date MEDICARE OF [employer] [address] [place] [address] [id number] MAYNOR NARAYAN Self - patient is the insured PGBA DO NOT USE DO NOT USE [facility] CLAIMS USE [place] [address] [place] [address] [id number] MAYNOR NARAYAN Self - patient is the insured Medical (General) History Medical History History ICD Code colonoscopy 11-20-2009 depression elevated cholesterol hypertension Surgical History Surgery Date(Month/Year) hysterectomy
--- OUTSIDE RECORDS SUMMARY | 2025-07-15 07:24 | XMS_ITS | Clinical Summary ---
Author Organization [facility] Address [address] [place] [phone] Phone Care Team Providers Care Home Health Lpn Name Role Phone Rosalio Lauren MD Primary Care Provider + Allergies Active Allergy Reactions Criticality Noted Date Comments Edgardo Inhibitors Swelling High 07/31/2017 Of throat and tongue Losartan Cough 07/31/2017 Allergic To all the family of ARDs Medications spironolactone (ALDACTONE) 25 MG tablet Take 25 mg by mouth daily. Active hydroCHLOROthiaz aguilar (MICROZIDE) 12.5 mg capsule Take 12.5 mg by mouth daily. Active simvastatin (ZOCOR) 80 MG tablet Take 80 mg by mouth nightly. Active amLODIPine (NORVASC) 5 MG tablet Take 5 mg by mouth daily. Active venlafaxine (EFFEXOR-ER,) 150 mg TR24 Take 75 mg by mouth daily. Active escitalopram oxalate (LEXAPRO) 20 MG tablet Take 20 mg by mouth daily. Active Social History Tobacco Use Types Packs/Day Years Used Date Smoking Tobacco: Never Assessed Education Answer Date Recorded Are you interested in more education? Not on aden e 11/18/2022 Are you concerned about learning? Not on file 11/18/2022 No 11/18/2022 No 11/18/2022 Digital Access Answer Date Recorded No 12/19/2022 No 12/19/2022 Reliable internet access at home? Not on file 12/19/2022 Device with a working camera? Not on file Comments Unknown Sex and Gender Information Value Date Recorded Sex Assigned at Not on file Legal Sex Female 10:11 PM EDT Gender Identity Not on file Sexual Orientation Not on file Last Filed Vital Signs Vital Sign Reading Time Taken Comments Blood Pressure - - Pulse - - Temperature - - Respiratory Rate - - Oxygen Saturation - - Inhaled Oxygen Concentration - - Weight 72.6 kg (160 lb) 07/31/2017 2:46 PM EST Height 152.4 cm (5') 07/31/2017 2:46 PM EST Body Mass Index 31.25 07/31/2017 2:46 PM EST Plan of Treatment Health Maintenance Due Date Last Done Comments POTASSIUM LEVEL 1941 DEPRESSION SCREENING 1953 OSTEOPOROSIS SCREENING INITIAL (ONE-TIME) 2006 ZOSTER VACCINES (2 of 2) 03/28/2012 02/01/2012 RSV VACCINE (1 - 1-dose 75+ series) 2016 Adult Td,Tdap Booster 10/01/2017 10/02/2007 INFLUENZA VACCINE (#1) 2025 2, 04/05/2021, 05/01/2020, Additional history exists COVID-19 VACCINE ( season) 2025 04/29/2022, 11/21/2021, 04/26/2021, Additional history exists HEPATITIS A VACCINES Completed 04/02/2008, 04/02/2008, 10/18/2007, Additional history exists PNEUMOCOCCAL VACCINES (50+ years) Completed 07/08/2019, 05/01/2018, 04/28/2018, Additional history exists HIB VACCINES Aged Out No longer eligi ble based on patient's age to complete this topic MENINGOCOCCAL VACCINES (ACWY) Aged Out No longer eligible based on patient's age to complete this topic MENINGOCOCCAL VACCINES (B) Aged Out N o longer eligible based on patient's age to complete this topic Medical Devices Not on file Insurance MEDICARE PART A & B FOR [place] [facility] [place] [address] [address] [place] [id number] MEDICARE PART A & B FOR LIFE MEDICARE SUPPLEMENT MEDICARE PART A & B [employer] MEDICARE [place] [facility] [place] [facility] [place]: [address] [address] [place] [phone] MEDICARE PART A & B [employer] MEDICARE [place] [facility] [place] [facility] [place] Address[place] [facility] [address] [place] [address] MEDICARE PART A & B [facility] MEDICARE SUPP[place]MENT [facility] [place] [place] Address: [facility] [address] [place] [address] MEDICARE PART A & B FOR LIFE MEDICARE SUPP[place] [facility] [place] Address[place] [address] [address] MEDICARE PART A & B FOR LIFE MEDICARE SU[place] [facility] [place] [place] Address[place] [address] [address] [place] [phone] MEDICARE PART A & B [employer] MEDICARE SU[place] [facility] [place] Address: [address] [address] [place] [phone] MEDICARE PART A & B [place] FOR LIFE MEDICARE SUPPLEMENT Care Teams Home Health Lpn Relationship Specialty Start Date End Date Rosalio Lauren MD [address] [place] [phone] PCP - General Family Medicine 08/23/19 Additional Source Comments The information contained in this document represents components of the legal health record. It is not the complete legal health record.[facility]
--- OUTSIDE RECORDS SUMMARY | 2025-07-15 07:25 | XMS_ITS | Patient Health Record ---
Author Organization [facility] Address [address] [place] [address] Care Team Providers Care Dispatcher [employer]obile [employer] Name Role Phone Rosalio Lauren MD Primary Care Provider Unaalfonzo ilable Black, Dinorah Unavailable [phone] Allergies Allergen (clinical drug ingredient) Drug/Non Drug Allergy documented on EMR Reaction Allergy Type Onset Date Status lisinopril Lisinopril Unknown Drug Allergy Activ e losartan Losartan Unknown Drug Allergy Active Reason For Referral No Information Medications Medication SIG (Take, Route, Frequency, Duration) Notes Start Date End Date Status Vitamin D3 Not-Takin g Aspirin Not-Taking Metoprolol Succinate ER 25 MG Oral; Duration: 30 Days Acti ve Eliquis 5 MG TAKE ONE TABLET BY MOUTH TWICE A DAY Oral; Duration: 30 Days Active Ciclopirox Olamine 0.77 % 1 application Externally Twice a day to skin of feet including between the toes; Duration: 30 days Active Venlafaxine HCl Acti ve Spironolactone-HCTZ Active amLODIPine Besylate Active Escitalopram Oxalate Active Social History Tobacco Use: Social History [...] No Points 0 Interpretation Negative Vital Signs Blood pressure diastolic 79 mm Hg 12/12/2024 Height 5 ft 1 in in 12/12/2024 Blood pressure systolic 121 mm Hg 12/12/2024 Weight 193 lbs 12/12/2024 BMI 36.46 kg/m2 12/12/2024 Procedures Procedure Date Ordered Date Performed Result Body Sit e 65429-[id number] NAIL, 6 OR MORE 09/02/2024 N/A [id number] NAIL, 6 OR MORE 12/12/2024 N/A Encounters Encounter Location Date Provider Diagnosis [address] [address] 09/02/2024 Dinorah Black Onychomycosis B35.1 ; Tinea pedis of both feet B35.3 ; Pain in right toe(s) M79.674 and Pain in left toe(s) M79.[address] [address] 12/12/2024 Dinorah Black Onychomycosis B35.1 ; Pain in right toe(s) M79.674 and Pain in left toe(s) M79.[address] [address] 03/26/2025 Dinorah Black Assessments Encounter Date Diagnosis (ICD Code) Assessment Notes Treatment Notes Treatment Clinical Notes Section Notes 09/02/2024 Onychomycosis (ICD-10 - B35.1) 09/02/2024 Tinea pedis of both feet (ICD-10 - B35.3) 12/12/2024 Pain in right toe(s) (ICD-10 - M79.674) 12/12/2024 Onychomycosis (ICD-10 - B35.1) 12/12/2024 Pain in left toe(s) (ICD-10 - M79.675) 09/02/2024 Pain in right toe(s) (ICD-10 - M79.674) 09/02/2024 Pain in left toe(s) (ICD-10 - M79.675) Plan Of Treatment Pending Test Test Name Order Date [id number] NAIL, 6 OR MORE 09/02/2024 [id number] NAIL, 6 OR MORE 12/12/2024 Insurance Providers Payer Name Payer Address Payer Phone Subscriber Number Group Number Insured Name Patient Relationship to Insured Coverage Start Date Coverage End Date Medicare [employer] [address] [place] [address] [id number] Gomez Lizbet Self - patient is the insured for Life [address] [place] [address] [id number] Franc Gomez Spouse - patient is the spouse of the insured Medical (General) History Medical History History ICD Code Arthritis Back,Hip,and Knee pain Depression Headaches/Migraines High Blood Pressure Measles Mumps Chicken pox Joint implants/screws A fib Surgical History Surgery Date(Month/Year) laminectomy 03/21/22 right knee replacement 02/28/23 left knee replacement 04/04/23 retinal reattached, right 07/2018
== END 2025-07-15 07:22 | disposition home or self-care (01) ==
LOC: HO.MAMMO 07:21
PROVIDERS: Visit Provider Family Medicine
DX: Z12.31 Encounter for screening mammogram for malignant neoplasm of breast (principal)
CPT/HCPCS: 77063; 77067

== ENCOUNTER → 2025-07-15 07:30 | Outpatient (BNV) | payer MEDICARE, OTHER, SELFPAY | PROVIDERS: Visit Provider Internal Medicine | DX: Z12.31 Encounter for screening mammogram for malignant neoplasm of breast (principal) | CPT/HCPCS: 77063; 77067 ==